=== PATIENT | female | born 1940 | race Hispanic/Latino ===

== ENCOUNTER 2017-11-05 10:58 | Emergency (ER) | payer MEDICARE, OTHER ==
[2017-11-05 11:28] VITALS: O2SAT 98
[2017-11-05] MEDS ORDERED: DiphenhydrAMINE 50 mg/ml Inj IVP STA (11:52)
[2017-11-05] MEDS ORDERED: Promethazine 25 MG in Sodium Chloride 0.9% 50 ML IVPB STA (11:52)
--- NOTE | 2017-11-05 12:01 | ED PDOC ---
HPI: Headache Time Seen by Provider: 11/05/17 11:36 Chief Complaint (Nursing): Headache Chief Complaint (Provider): Headache History Per: Patient, Family (Son) History/Exam Limitations: no limitations Onset/Duration Of Symptoms: Intermittent Episodes Current Symptoms Are (Timing): Still Present Associated Symptoms: denies: Photophobia, Blurred Vision Additional Complaint(s): 77 year old female presented to the ED with her son complaining of intermittent right sided headache with onset of 2 years but has worsened in the past 2 weeks. Patient reports she takes chronic narcotic medications for chronic back pain. She denies visual changes, photophobia, neck stiffness, and fever. PCP: Dr. Thomson Past Medical History Reviewed: Historical Data, Nursing Documentation, Vital Signs Vital Signs: Last Vital Signs Temp 98.0 F 11/05/17 11:22 Pulse 86 11/05/17 11:22 Resp 16 11/05/17 11:22 BP 128/68 11/05/17 11:22 Pulse Ox 98 11/05/17 11:22 - Medical History PMH: Arthritis, Asthma, HTN, Hypercholesterolemia Denies: Chronic Kidney Disease - Surgical History Surgical History: Appendectomy, Back Surgery Other surgeries: Cataract surgery - Family History Family History: States: Unknown Family Hx - Social History Current smoker - smoking cessation education provided: No Alcohol: None Drugs: Denies - Home Medications Home Medications: Ambulatory Orders Medication Instructions Recorded Esomeprazole Magnesium [Nexium 40 mg PO DAILY 03/19/15 24Hr] Fluticasone/Salmeterol 500/50 1 puff INH Q12H 03/19/15 [Advair Diskus 500/50] Levalbuterol Tartrate [Xopenex Hfa] 2 puff IH Q6H PRN 03/19/15 Losartan Potassium 50 mg PO DAILY 03/19/15 Montelukast [Singulair] 10 mg PO HS 03/19/15 Oxycodone HCl/Acetaminophen 1 tab PO DAILY 03/19/15 [Percocet 325 mg-5 mg] amLODIPine [Norvasc] 5 mg PO DAILY 03/19/15 clonazePAM [Klonopin] 1 mg PO TID PRN 03/19/15 Bimatoprost [Lumigan] 1 drop EACHEYE HS 05/10/15 Brimonidine Tartrate/Timolol 1 drop EACHEYE BID 05/10/15 [Combigan 0.2%-0.5% Eye Drops] Donepezil [Aricept] 10 mg PO DAILY 05/10/15 Dorzolamide 2% [Trusopt] 1 drop EACHEYE TID 05/10/15 Multivit,Iron,Min 5/Folic Acid 1 tab PO DAILY 05/10/15 [Strovite Forte Caplet] Olopatadine 0.1% Opht [Patanol 1 drop EACHEYE BID PRN 05/10/15 0.1% Opht Soln] Rosuvastatin Calcium [Crestor] 5 mg PO HS 05/10/15 Trazodone Hydrochloride [Trazodone 150 mg PO HS 05/10/15 HCl] Mirtazapine [Remeron] 45 mg PO HS 05/13/15 Ciprofloxacin [Cipro] 500 mg PO BID #10 tab 05/14/15 Metronidazole [Flagyl] 500 mg PO TID #15 tab 05/14/15 - Allergies Allergies/Adverse Reactions: Allergies Allergy/AdvReac Type Severity Reaction Status Date / Time aspirin Allergy RASH Verified 11/05/17 11:28 Review of Systems ROS Statement: Except As Marked, All Systems Reviewed And Found Negative Constitutional: Negative for: Fever Eyes: Negative for: Vision Change, Other (photophobia) ENT: Negative for: Other (neck stiffness) Neurological: Positive for: Headache (right sided). Negative for: Other Physical Exam - Reviewed Nursing Documentation Reviewed: Yes Vital Signs Reviewed: Yes - Physical Exam Appears: Positive for: Non-toxic, No Acute Distress Head Exam: Positive for: ATRAUMATIC, NORMOCEPHALIC Skin: Positive for: Normal Color, Warm, Dry Neck: Positive for: Normal, Painless ROM Cardiovascular/Chest: Positive for: Regular Rate, Rhythm. Negative for: Murmur Respiratory: Positive for: Normal Breath Sounds. Negative for: Wheezing, Respiratory Distress Extremity: Positive for: Normal ROM Neurologic/Psych: Positive for: Alert, Oriented. 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 - ECG O2 Sat by Pulse Oximetry: 98 (RA) Pulse Ox Interpretation: Normal Medical Decision Making Medical Decision Making: Initial Impression: acute on chronic headache Initial Plan: CT Head Diphenhydramine 25mg IV Promethazine 25mg Sodium chloride 0.9% 50mL IV Accession No. : [id number] Patient Name / ID : DAYAN Pablo / [id number] Exam Date : 11/05/2017 12:31:00 ( Approved ) Study Comment : Sex / Age : F / [id number] Creator : Jose Luis Schneider MD Dictator : Jose Luis Schneider MD Promotion Officer : Yardage Control Clerk : Jose Luis Schneider MD Approver2 : Report Date : 11/05/2017 12:50:35 My Comment : PROCEDURE: CT HEAD WITHOUT CONTRAST. HISTORY: KASPER COMPARISON: CT head dated 02/02/2009. TECHNIQUE: Axial computed tomography images were obtained through the head/brain without intravenous contrast. Radiation dose: Total exam DLP = 812.4 mGy-cm. This CT exam was performed using one or more of the following dose reduction techniques: Automated exposure control, adjustment of the mA and/or kV according to patient size, and/or use of iterative reconstruction technique. FINDINGS: HEMORRHAGE: No intracranial hemorrhage. BRAIN: No mass effect or edema. Mild atrophy. Mild chronic microvascular ischemic changes. Bilateral basal ganglia lacunar infarctions versus prominent perivascular spaces. VENTRICLES: Mildly prominent. Patent cavum septum pellucidum. No hydrocephalus. CALVARIUM: Unremarkable. PARANASAL SINUSES: Bilateral ethmoid air cell and left sphenoid sinus mucosal thickening. MASTOID AIR CELLS: Unremarkable as visualized. No inflammatory changes. OTHER FINDINGS: None. IMPRESSION: No acute intracranial pathology. Sinus disease as described above. 14:30 Son states patient chronically uses opioids for back pain, was scheduled for spinal stimulator tomorrow but canceled appt. Pt is followed closely by Pain management physician but frequently refuses alternative treatments. Son states patient had CT head in past which was normal. Scribe Attestation: Documented by Ronnie Angulo acting as a scribe for Arely Ritchie MD. Provider Scribe Attestation: All medical record entries made by the Scribe were at my direction and personally dictated by me. I have reviewed the chart and agree that the record accurately reflects my personal performance of the history, physical exam, medical decision making, and the department course for this patient. I have also personally directed, reviewed, and agree with the discharge instructions and disposition. Disposition - Clinical Impression Clinical Impression: Chronic headache - Disposition Referrals: Souleymane Espino MD [Medical Doctor] - Disposition: Routine/Home Disposition Time: 14:39 Condition: STABLE Instructions: Headache, Adult Forms: [facility] (Irish)
[2017-11-05] MEDS ORDERED: DiphenhydrAMINE 50 mg/ml Inj ONE (12:04)
--- NOTE | 2017-11-05 12:52 | CT ---
PROCEDURE: CT HEAD WITHOUT CONTRAST. HISTORY: KASPER COMPARISON: CT head dated 02/02/2009. TECHNIQUE: Axial computed tomography images were obtained through the head/brain without intravenous contrast. Radiation dose: Total exam DLP = 812.4 mGy-cm. This CT exam was performed using one or more of the following dose reduction techniques: Automated exposure control, adjustment of the mA and/or kV according to patient size, and/or use of iterative reconstruction technique. FINDINGS: HEMORRHAGE: No intracranial hemorrhage. BRAIN: No mass effect or edema. Mild atrophy. Mild chronic microvascular ischemic changes. Bilateral basal ganglia lacunar infarctions versus prominent perivascular spaces. VENTRICLES: Mildly prominent. Patent cavum septum pellucidum. No hydrocephalus. CALVARIUM: Unremarkable. PARANASAL SINUSES: Bilateral ethmoid air cell and left sphenoid sinus mucosal thickening. MASTOID AIR CELLS: Unremarkable as visualized. No inflammatory changes. OTHER FINDINGS: None. IMPRESSION: No acute intracranial pathology. Sinus disease as described above.
[2017-11-05 15:24] VITALS: BP 120/76; PULSE 78; RESP 19; TEMP 97.6
== END 2017-11-05 15:25 | disposition home or self-care (01) ==
LOC: H.ER 10:58
DX: R51 Headache (principal)
CPT/HCPCS: 70450; 96374; 99284; J1200; J2550

== ENCOUNTER 2018-05-23 12:59 | Emergency (ER) | payer MEDICARE, OTHER ==
--- NOTE | 2018-05-23 13:45 | ED PDOC ---
HPI: General Adult Time Seen by Provider: 05/23/18 13:18 Chief Complaint (Nursing): Flu-like Symptoms Chief Complaint (Provider): "Not feeling well" History Per: Patient History/Exam Limitations: no limitations Additional Complaint(s): Pt reports feeling sick X 2 days, abdominal pain, chills, vomiting yesterday. Denies fever, KASPER, cough, diarrhea. Past Medical History Reviewed: Nursing Documentation, Vital Signs Vital Signs: Last Vital Signs Temp 99 F 05/23/18 13:06 Pulse 86 05/23/18 13:06 Resp 20 05/23/18 13:06 BP 131/77 05/23/18 13:06 Pulse Ox 97 05/23/18 13:06 - Medical History PMH: Arthritis, Asthma, Depression, HTN, Hypercholesterolemia - Surgical History Surgical History: Appendectomy, Back Surgery - Family History Family History: States: Unknown Family Hx - Social History Current smoker - smoking cessation education provided: No Alcohol: None - Home Medications Home Medications: Ambulatory Orders Medication Instructions Recorded Esomeprazole Magnesium [Nexium 40 mg PO DAILY 03/19/15 24Hr] Fluticasone/Salmeterol 500/50 1 puff INH Q12H 03/19/15 [Advair Diskus 500/50] Oxycodone HCl/Acetaminophen 1 tab PO PRN PRN 03/19/15 [Percocet 325 mg-5 mg] amLODIPine [Norvasc] 5 mg PO DAILY 03/19/15 Rosuvastatin Calcium [Crestor] 5 mg PO HS 05/10/15 Trazodone Hydrochloride [Trazodone 150 mg PO HS 05/10/15 HCl] Col-Rite 03/27/18 Docusate [Colace] 100 mg PO Q8 PRN #20 cap 03/27/18 Effexor 03/27/18 Lactulose 03/27/18 Metamucil 03/27/18 Mirtazapine 45 mg PO HS 03/27/18 Sucralfate [Carafate] 1 gm PO 03/27/18 Dicyclomine [Bentyl] 20 mg PO QID PRN #20 tab 05/23/18 Famotidine [Pepcid] 40 mg PO DAILY PRN #30 tab 05/23/18 Saccharomyces Boulardi [Florastor] 500 mg PO BID #28 cap 05/23/18 - Allergies Allergies/Adverse Reactions: Allergies Allergy/AdvReac Type Severity Reaction Status Date / Time aspirin Allergy RASH Verified 11/05/17 11:28 Review of Systems Constitutional: Positive for: Chills. Negative for: Fever Eyes: Negative for: Vision Change Cardiovascular: Negative for: Chest Pain, Palpitations Respiratory: Negative for: Cough, Shortness of Breath Gastrointestinal: Positive for: Nausea, Vomiting, Abdominal Pain. Negative for: Diarrhea Genitourinary Female: Negative for: Dysuria, Hematuria Musculoskeletal: Positive for: Back Pain (Chronic) Skin: Negative for: Rash, Lesions Neurological: Negative for: Altered Mental Status, Headache, Dizziness Physical Exam - Reviewed Nursing Documentation Reviewed: Yes Vital Signs Reviewed: Yes - Physical Exam Appears: Positive for: Well, No Acute Distress Head Exam: Positive for: ATRAUMATIC, NORMAL INSPECTION Skin: Positive for: Normal Color, Warm, Dry Eye Exam: Positive for: Normal appearance, EOMI, PERRL Cardiovascular/Chest: Positive for: Regular Rate, Rhythm Respiratory: Positive for: Normal Breath Sounds Gastrointestinal/Abdominal: Positive for: Bowel Sounds, Soft, Tenderness (Generalized). Negative for: Distended, Guarding, Rebound Extremity: Positive for: Normal ROM Neurologic/Psych: Positive for: Alert, category analyst II-XII, Oriented - Laboratory Results Result Diagrams: 05/23/18 13:57 05/23/18 13:57 - ECG O2 Sat by Pulse Oximetry: 97 Medical Decision Making Medical Decision Makin yo female with chills, vomiting and abdominal pain. - labs - EKG - CXR - CT abd/pelvis - IVF - Zofran - Morphine Disposition - Clinical Impression Clinical Impression: Abdominal pain - Disposition Referrals: Bridger Posadas MD [Family Provider] - 05/24/18 Disposition: Transfer of Care Disposition Time: 15:00 Condition: STABLE Prescriptions: Dicyclomine [Bentyl] 20 mg PO QID PRN #20 tab PRN Reason: abdominal pain Famotidine [Pepcid] 40 mg PO DAILY PRN #30 tab PRN Reason: reflux Saccharomyces Boulardi [Florastor] 500 mg PO BID #28 cap Instructions: Acute Abdomen (Belly Pain), Adult (DC) Print Language: CYPRIOT Patient Signed Over To: Felicita Jones
[2018-05-23] MEDS ORDERED: Sodium Chloride 0.9% 1,000 ML IV STA (13:48)
[2018-05-23] MEDS ORDERED: Morphine 4 MG/ML VIAL ONE (14:02)
[2018-05-23 14:04] LABS: BASO # 0.1 K/uL (0.0-0.2); BASO % 0.5 % (0.0-2.0); EOS # 0.2 K/uL (0.0-0.7); EOS % 2.2 % (0.0-4.0); HEMOGLOBIN 13.2 g/dL (12.0-16.0); LYMPH # 3.1 K/uL (1.0-4.3); MEAN CELL VOLUME 95.4 fl (81.0-99.0); MEAN CORPUSCULAR HEMOGLOBIN 31.1 pg (27.0-31.0); MEAN CORPUSCULAR HGB CONC 32.6 g/dL (33.0-37.0); MONO # 0.9 K/uL (0.0-0.8); MONO % 8.7 % (0.0-10.0); NEUT # 5.8 K/uL (1.8-7.0); NEUT % 57.6 % (50.0-75.0); NRBC % 0.4 % (0.0-0.0); RBC 4.26 Mil/uL (3.80-5.20); RED CELL DISTRIBUTION WIDTH 15.1 % (11.5-14.5)
[2018-05-23 14:12] LABS: INR 1.2; PROTHROMBIN TIME 13.3 Seconds (9.8-13.1)
[2018-05-23 14:15] LABS: PARTIAL THROMBOPLASTIN TIME 28.1 Seconds (25.6-37.1)
[2018-05-23 14:25] LABS: SQUAMOUS EPITHIAL < 1 /hpf (0-5); URINE BILIRUBIN NEGATIVE (NEGATIVE); URINE BLOOD NEGATIVE (NEGATIVE); URINE CLARITY CLEAR (Clear); URINE COLOR YELLOW (YELLOW); URINE GLUCOSE (UA) NEG (NEGATIVE); URINE LEUKOCYTE ESTERASE NEG Leu/uL (Negative); URINE PROTEIN NEGATIVE (NEGATIVE); URINE UROBILINOGEN 0.2-1.0 mg/dL (0.2-1.0)
[2018-05-23 14:48] LABS: ALB/GLOB RATIO 1.4 (1.0-2.1); ALBUMIN 4.4 g/dL (3.5-5.0); ALT/SGPT 25 U/L (9-52); AST/SGOT 38 U/L (14-36); BLOOD UREA NITROGEN 12 mg/dl (7-17); CALCIUM 9.6 mg/dL (8.4-10.2); GFR NON-AFRICAN AMERICAN > 60
--- NOTE | 2018-05-23 14:52 | RAD ---
Date of service: 05/23/2018 HISTORY: Abd pain COMPARISON: No prior. TECHNIQUE: Chest PA and lateral FINDINGS: LUNGS: Suspect minimal bibasilar atelectasis.. Persistent slight elevation right hemidiaphragm possibly due to eventration. PLEURA: No significant pleural effusion identified. No pneumothorax apparent. CARDIOVASCULAR: No significant aortic atherosclerotic calcification present. Normal cardiac size. No pulmonary vascular congestion. OSSEOUS STRUCTURES: Minor multilevel degenerative spondylosis in situ pain stimulator electrodes within the posterior spinal canal in the mid to lower thoracic region unchanged from prior study in. Degenerative osteoarthritis both shoulder girdles. VISUALIZED UPPER ABDOMEN: Normal. OTHER FINDINGS: None. IMPRESSION: Suspect minimal bibasilar atelectasis.. Persistent slight elevation right hemidiaphragm possibly due to eventration.
[2018-05-23] MEDS ORDERED: Iohexol 300 100 ML IJ ONE (15:10)
[2018-05-23] MEDS ORDERED: Sodium Chloride 0.9% 50 ML IV ONE (15:10)
--- NOTE | 2018-05-23 15:41 | ED PDOC ---
- Laboratory Results Result Diagrams: 05/23/18 13:57 05/23/18 13:57 - ECG O2 Sat by Pulse Oximetry: 97 (RA) Pulse Ox Interpretation: Normal Medical Decision Making Medical Decision Makin Patient signed out to me by Dr. Ritchie pending labs, CT Abdomen/Pelvis Labs reviewed, no clinically significant abnormalities noted. 1619 CT RESULTS FINDINGS: LOWER THORAX: Unremarkable. Heart size borderline/mildly enlarged. No significant pericardial effusion. There are patchy alveolar-type infiltrates right lung base. In addition, there are some minor scarring changes seen in the right middle lobe. The with LIVER: Liver exhibits normal size. Mild fatty hepatic infiltration. No obvious hepatic mass collection or calcification. Portal and splenic veins are opacified. GALLBLADDER AND BILE DUCTS: Unremarkable. PANCREAS: Pancreas appears slightly atrophic and fatty replaced.. SPLEEN: Unremarkable. No splenomegaly. ADRENALS: No adrenal lesions. KIDNEYS AND URETERS: Unremarkable. No stone or hydronephrosis. BLADDER: The bladder is somewhat thick-walled appearance. Correlation with urinalysis re commended. She 6 REPRODUCTIVE: There appear to be some minimal vascular calcifications about the periphery of the uterus. APPENDIX: The appendix is not seen with complete certainty however no BOWEL: Evaluation of the bowel is somewhat limited due to the lack of oral contrast material. The stomach is relatively collapsed with thick-walled appearance however there may be questionable edema involving the wall of the body of the stomach. Rule out gastritis. Visualized loops of small bowel exhibit normal contour and caliber. No evidence of acute mechanical small bowel obstruction. Moderate amount of stool is seen throughout the cecum at ascending as well as transverse colon consistent with fecal retention/constipation. There are scattered colonic diverticula seen along descending and sigmoid colon with a short segment of the proximal sigmoid colon exhibiting slight thick-walled appea rich. Possibility of a mild early acute diverticulitis must be considered. Clinical correlation recommended... PERITONEUM: Unremarkable. No fluid collection. No free air. Small fat containing umbilical hernia. LYMPH NODES: Unremarkable. No enlarged lymph nodes. VASCULATURE: Unremarkable. No aortic aneurysm. No aortic atherosclerotic calcification or mural plaque present. BONES: Mild multilevel degenerative spondylosis of the lower thoracic and lumbar spine. Postoperative bony fusion changes of the L4 and L5 vertebral body segments with bilateral posterior bony fusion masses. In situ pain stimulator within the dorsal aspect of the lower thoracic and upper lumbar spine with battery pack in the right parasagittal posterior subcutaneous tissues. OTHER FINDINGS: None. IMPRESSION: Diverticulosis with what could represent mild early acute diverticulitis involving a short segment of proximal sigmoid colon. Questionable gastric wall edema. Mild fatty hepatic infiltration. See above discussion for additional findings and details. [address] scan findings. Patient states she continues to have abdominal pain; repeat physical exam demonstrates distractable and unlocalizable tenderness. Will trial GI cocktail for pain relief. 1818 On reassessment, patient reports improvement in pain. Repeat physical exam shows soft, non-tender abdomen. Patient stable for dischar ge home, instructed to follow up with PMD in 2-3 days. Scribe Attestation: Documented by Corina Cisse acting as a scribe for Felicita Jones MD Provider Attestation: All medical record entries made by the Scribe were at my direction and persona lly dictated by me. I have reviewed the chart and agree that the record accurately reflects my personal performance of the history, physical exam, medical decision making, and the department course for this patient. I have also personally directed, reviewed, and agree with the discharge instructions and disposition. Disposition - Clinical Impression Clinical Impression: Abdominal pain - POA Present On Arrival: None - Disposition Referrals: Bridger Posadas MD [Family Provider] - 05/24/18 Disposition: Routine/Home Disposition Time: 18:20 Condition: IMPROVED Prescriptions: Dicyclomine [Bentyl] 20 mg PO QID PRN #20 tab PRN Reason: abdominal pain Famotidine [Pepcid] 40 mg PO DAILY PRN #30 tab PRN Reason: reflux Saccharomyces Boulardi [Florastor] 500 mg PO BID #28 cap Instructions: Acute Abdomen (Belly Pain), Adult (DC) Print Language: BELARUSIAN
[2018-05-23 16:22] VITALS: RESP 18
--- NOTE | 2018-05-23 16:23 | CT ---
Date of service: 05/23/2018 PROCEDURE: CT Abdomen and Pelvis. HISTORY: Abdominal pain COMPARISON: Comparison made with CT scan and pelvis 05/10/2015 TECHNIQUE: Contiguous axial images of the abdomen and pelvis. Oral contrast was administered. No IV contrast given. Coronal and Sagittal reformats generated. Radiation dose: Total exam DLP = 369.98 mGy-cm. This CT exam was performed using one or more of the following dose reduction techniques: Automated exposure control, adjustment of the mA and/or kV according to patient size, and/or use of iterative reconstruction technique. FINDINGS: LOWER THORAX: Unremarkable. Heart size borderline/mildly enlarged. No significant pericardial effusion. There are patchy alveolar-type infiltrates right lung base. In addition, there are some minor scarring changes seen in the right middle lobe. The with LIVER: Liver exhibits normal size. Mild fatty hepatic infiltration. No obvious hepatic mass collection or calcification. Portal and splenic veins are opacified. GALLBLADDER AND BILE DUCTS: Unremarkable. PANCREAS: Pancreas appears slightly atrophic and fatty replaced.. SPLEEN: Unremarkable. No splenomegaly. ADRENALS: No adrenal lesions. KIDNEYS AND URETERS: Unremarkable. No stone or hydronephrosis. BLADDER: The bladder is somewhat thick-walled appearance. Correlation with urinalysis recommended. She 6 REPRODUCTIVE: There appear to be some minimal vascular calcifications about the periphery of the uterus. APPENDIX: The appendix is not seen with complete certainty however no BOWEL: Evaluation of the bowel is somewhat limited due to the lack of oral contrast material. The stomach is relatively collapsed with thick-walled appearance however there may be questionable edema involving the wall of the body of the stomach. Rule out gastritis. Visualized loops of small bowel exhibit normal contour and caliber. No evidence of acute mechanical small bowel obstruction. Moderate amount of stool is seen throughout the cecum at ascending as well as transverse colon consistent with fecal retention/constipation. There are scattered colonic diverticula seen along descending and sigmoid colon with a short segment of the proximal sigmoid colon exhibiting slight thick-walled appearance. Possibility of a mild early acute diverticulitis must be considered. Clinical correlation recommended... PERITONEUM: Unremarkable. No fluid collection. No free air. Small fat containing umbilical hernia. LYMPH NODES: Unremarkable. No enlarged lymph nodes. VASCULATURE: Unremarkable. No aortic aneurysm. No aortic atherosclerotic calcification or mural plaque present. BONES: Mild multilevel degenerative spondylosis of the lower thoracic and lumbar spine. Postoperative bony fusion changes of the L4 and L5 vertebral body segments with bilateral posterior bony fusion masses. In situ pain stimulator within the dorsal aspect of the lower thoracic and upper lumbar spine with battery pack in the right parasagittal posterior subcutaneous tissues. OTHER FINDINGS: None. IMPRESSION: Diverticulosis with what could represent mild early acute diverticulitis involving a short segment of proximal sigmoid colon. Questionable gastric wall edema. Mild fatty hepatic infiltration. See above discussion for additional findings and details.
[2018-05-23] MEDS ORDERED: Alum-Mag Hydrox-Simethicone Susp (30 mL) PO STA (17:01)
[2018-05-23] MEDS ORDERED: Alum-Mag Hydrox-Simethicone Susp (30 mL) ONE (17:15)
[2018-05-23 18:32] VITALS: BP 147/83; PULSE 76; TEMP 98.5
[2018-05-27 12:44] VITALS: O2SAT 97
== END 2018-05-23 18:29 | disposition home or self-care (01) ==
LOC: H.ER 12:59 → SUPCPDRO 12:59 → H.ER 18:29
DX: R10.9 Unspecified abdominal pain (principal)
CPT/HCPCS: 71046; 74177; 80053; 81003; 85025; 85610; 85730; 87804; 96374; 99284; J2270; J2405; J7030; Q9967

== ENCOUNTER 2018-06-28 07:15 | Inpatient (IN) | payer MEDICARE, OTHER ==
[2018-06-28 07:26] VITALS: BMI 23.4
[2018-06-28] MEDS ORDERED: Sodium Chloride 0.9% 1,000 ML IV STA (07:52)
[2018-06-28] MEDS ORDERED: Nitroglycerin 2% 15 INCH/30 GM TUBE TOP STA (07:53)
--- NOTE | 2018-06-28 07:56 | ED PDOC ---
HPI: Chest Pain Time Seen by Provider: 06/28/18 07:39 Chief Complaint (Nursing): Chest Pain History Per: Patient Onset/Duration Of Symptoms: Days (1) Current Symptoms Are (Timing): Still Present Quality: Other Associated Symptoms: denies: Dyspnea Modifying Factors: None Exacerbating Factors: None Additional Complaint(s): Chest pain, non-radiating since this AM. Has also been coughing, non-productive x 5 days, dx'ed with pneumonia by PMD and is on Doxycycline x 5 days. Denies fever. denies SOB. Past Medical History Vital Signs: Last Vital Signs Temp 98.3 F 06/28/18 07:26 Pulse 80 06/28/18 07:26 Resp 17 06/28/18 07:26 BP 161/103 H 06/28/18 07:26 Pulse Ox 97 06/28/18 07:26 - Medical History PMH: Anxiety, Arthritis, Asthma, Back Problems, Depression, HTN, Hypercholesterolemia - Surgical History Surgical History: Appendectomy, Back Surgery - Family History Family History: States: Unknown Family Hx - Home Medications Home Medications: Ambulatory Orders Medication Instructions Recorded Esomeprazole Magnesium [Nexium 40 mg PO DAILY 03/19/15 24Hr] Fluticasone/Salmeterol 500/50 1 puff INH Q12H 03/19/15 [Advair Diskus 500/50] Oxycodone HCl/Acetaminophen 1 tab PO PRN PRN 03/19/15 [Percocet 325 mg-5 mg] amLODIPine [Norvasc] 5 mg PO DAILY 03/19/15 Rosuvastatin Calcium [Crestor] 5 mg PO HS 05/10/15 Trazodone Hydrochloride [Trazodone 150 mg PO HS 05/10/15 HCl] Col-Rite 03/27/18 Docusate [Colace] 100 mg PO Q8 PRN #20 cap 03/27/18 Effexor 03/27/18 Lactulose 03/27/18 Metamucil 03/27/18 Mirtazapine 45 mg PO HS 03/27/18 Sucralfate [Carafate] 1 gm PO 03/27/18 Dicyclomine [Bentyl] 20 mg PO QID PRN #20 tab 05/23/18 Famotidine [Pepcid] 40 mg PO DAILY PRN #30 tab 05/23/18 Saccharomyces Boulardi [Florastor] 500 mg PO BID #28 cap 05/23/18 - Allergies Allergies/Adverse Reactions: Allergies Allergy/AdvReac Type Severity Reaction Status Date / Time aspirin Allergy RASH Verified 11/05/17 11:28 Review of Systems ROS Statement: Except As Marked, All Systems Reviewed And Found Negative Constitutional: Negative for: Fever Cardiovascular: Positive for: Chest Pain Respiratory: Positive for: Cough. Negative for: Shortness of Breath Physical Exam - Reviewed Nursing Documentation Reviewed: Yes Vital Signs Reviewed: Yes - Physical Exam Appears: Positive for: Non-toxic, No Acute Distress Head Exam: Positive for: ATRAUMATIC, NORMAL INSPECTION, NORMOCEPHALIC Skin: Positive for: Normal Color, Warm, DRY Eye Exam: Positive for: EOMI, Normal appearance, PERRL ENT: Positive for: Normal ENT Inspection Neck: Positive for: Normal, Painless ROM Cardiovascular/Chest: Positive for: Regular Rate, Rhythm Respiratory: Positive for: Rhonchi. Negative for: Wheezing, Respiratory Distress Gastrointestinal/Abdominal: Positive for: Normal Exam, Soft Back: Positive for: Normal Inspection Extremity: Positive for: Normal ROM Neurologic/Psych: Positive for: Alert, Oriented - Laboratory Results Result Diagrams: 06/28/18 08:10 06/28/18 08:10 - ECG O2 Sat by Pulse Oximetry: 97 Medical Decision Making Medical Decision Making: Unclear if chest pain is of cardiac or respiratory etiology. Will Obtain CXR, Influenza and Troponin EKG NSR rate 80. No acute ST changes Disposition - Clinical Impression Clinical Impression: Chest pain - Patient ED Disposition Is Patient to be Admitted: Yes - Disposition Disposition Time: 09:41 Condition: FAIR Forms: [facility] (Cameroonian) - Pt Status Changed To: Hospital Disposition Of: Observation - POA Present On Arrival: None
[2018-06-28 08:09] LABS: VENOUS BLOOD GAS BASE EXCESS 7.1 mmol/L (0.0-2.0); VENOUS BLOOD GAS PCO2 56 mmHg (40-60); VENOUS BLOOD GAS PO2 18 mm/Hg (30-55); VENOUS BLOOD PH 7.39 (7.32-7.43)
[2018-06-28] MEDS ORDERED: Nitroglycerin 2% Ointment Foilpak UD TOP ONE (08:18)
[2018-06-28 08:34] LABS: BASO # 0.1 K/uL (0.0-0.2); BASO % 0.7 % (0.0-2.0); EOS # 0.2 K/uL (0.0-0.7); HEMOGLOBIN 14.7 g/dL (12.0-16.0); LYMPH # 3.6 K/uL (1.0-4.3); LYMPH % 22.7 % (20.0-40.0); MEAN CELL VOLUME 94.1 fl (81.0-99.0); MEAN CORPUSCULAR HEMOGLOBIN 29.9 pg (27.0-31.0); MEAN CORPUSCULAR HGB CONC 31.8 g/dL (33.0-37.0); MEAN PLATELET VOLUME 7.8 fl (7.2-11.7); MONO # 1.1 K/uL (0.0-0.8); MONO % 7.2 % (0.0-10.0); NEUT # 10.7 K/uL (1.8-7.0); NEUT % 68.4 % (50.0-75.0); RBC 4.93 Mil/uL (3.80-5.20); WHITE BLOOD COUNT 15.7 K/uL (4.8-10.8)
[2018-06-28 08:40] LABS: ALB/GLOB RATIO 1.1 (1.0-2.1); ALBUMIN 4.7 g/dL (3.5-5.0); ALT/SGPT 27 U/L (9-52); AST/SGOT 33 U/L (14-36); BLOOD UREA NITROGEN 24 mg/dl (7-17); GFR NON-AFRICAN AMERICAN > 60
[2018-06-28] MEDS ORDERED: Nitroglycerin 2% Ointment Foilpak UD TOP STA (08:51)
--- NOTE | 2018-06-28 11:36 | RAD ---
Date of service: 06/28/2018 HISTORY: Chest pain COMPARISON: Comparison is made with the previous study dated 05/23/2018 TECHNIQUE: Chest PA and lateral FINDINGS: LUNGS: No evidence of new infiltrate or consolidation in the lungs. PLEURA: No significant pleural effusion identified. No pneumothorax apparent. CARDIOVASCULAR: No aortic atherosclerotic calcification present. Normal cardiac size. No pulmonary vascular congestion. OSSEOUS STRUCTURES: Severe degenerative changes at the shoulder joints noted. VISUALIZED UPPER ABDOMEN: Normal. OTHER FINDINGS: There are stimulator wires overlying the lower thoracic and lumbar spine. IMPRESSION: No evidence of acute pulmonary disease.
--- NOTE | 2018-06-28 13:24 | CP.PCM.HP ---
History of Present Illness - History of Present Illness History of Present Illness: CC Chest pain. 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 Patient with recent Hx PNA, treated by PMD with Doxycycline with 5th day of treatment. Patient was seen in Telemetry floor with Chest pain pressure type, SOB , high BP, orthopnea , diaphoresis and was seen at bedside with Bottle House Pumper digital marketing consultant , SCALEHOUSE ATTENDANT was called, She was treated with NTG S/L with improvement , NTG drip, EKG St depresion V4,V5, Pt also was treated with Lipitor, Plavix, Metropolol, Cozaar Aggravated factor: Coughing Pt denied: Fever, chills, n/v/d, syncope, dizziness, tachycardia, abdominal pain, urinary symptoms, sick contact, recent travel out of [facility]. CXR: No acute pulmonary disease. EKG: St depression V4 V5 Present on Admission - Present on Admission Any Indicators Present on Admission: No Review of Systems - Constitutional Constitutional: Other (negative) - EENT Eyes: Requires Corrective Lenses Ears: Other (negative) Nose/Mouth/Throat: Other (negative) - Cardiovascular Cardiovascular: Chest Pain - Respiratory Respiratory: Cough, Chest Congestion - Gastrointestinal Gastrointestinal: Other (negative) - Genitourinary Genitourinary: Other (negative) - Musculoskeletal Musculoskeletal: Arthralgias - Integumentary Integumentary: Other (negative) - Neurological Neurological: Other (negative) - Psychiatric Psychiatric: Anxiety, Depression - Endocrine Endocrine: Other (negative) - Hematologic/Lymphatic Hematologic: Other (negative) Past Patient History - Infectious Disease Hx of Infectious Diseases: None - Past Medical History & Family History Past Medical History?: Yes Pertinent Family History: Unknown - Past Social History Smoking Status: Never Smoked Alcohol: None Drugs: Denies Home Situation {Lives}: Alone - CARDIAC Hx Cardiac Disorders: Yes Hx Hypercholesterolemia: Yes Hx Hypertension: Yes - PULMONARY Hx Respiratory Disorders: Yes Hx Asthma: Yes - NEUROLOGICAL Hx Neurological Disorder: No - HEENT Hx HEENT Problems: No Other/Comment: Use eyeglasses - RENAL Hx Chronic Kidney Disease: No - ENDOCRINE/METABOLIC Hx Endocrine Disorders: No - HEMATOLOGICAL/ONCOLOGICAL Hx Blood Disorders: No - INTEGUMENTARY Hx Dermatological Problems: No - MUSCULOSKELETAL/RHEUMATOLOGICAL Hx Musculoskeletal Disorders: Yes Hx Arthritis: Yes Hx Back Pain: Yes - GASTROINTESTINAL Hx Gastrointestinal Disorders: Yes Hx Constipation: Yes Hx Gastroesophageal Reflux: Yes - GENITOURINARY/GYNECOLOGICAL Hx Genitourinary Disorders: No - PSYCHIATRIC Hx Psychophysiologic Disorder: Yes Hx Anxiety: Yes Hx Depression: Yes - SURGICAL HISTORY Hx Surgeries: Yes Hx Appendectomy: Yes - ANESTHESIA Hx Anesthesia: Yes Hx Anesthesia Reactions: No Hx Malignant Hyperthermia: No Meds Allergies/Adverse Reactions: Allergies Allergy/AdvReac Type Severity Reaction Status Date / Time aspirin Allergy RASH Verified 11/05/17 11:28 Physical Exam - Constitutional Appears: In Acute Distress - Head Exam Head Exam: NORMAL INSPECTION - Eye Exam Eye Exam: PERRL - ENT Exam ENT Exam: Normal Exam - Neck Exam Neck exam: Positive for: Normal Inspection - Respiratory Exam Respiratory Exam: Rhonchi - Cardiovascular Exam Cardiovascular Exam: Tachycardia - GI/Abdominal Exam GI & Abdominal Exam: Normal Bowel Sounds, Soft - Extremities Exam Extremities exam: Positive for: normal inspection - Back Exam Back exam: NORMAL INSPECTION - Neurological Exam Neurological exam: Alert, Oriented x3 - Psychiatric Exam Psychiatric exam: Anxious, Depressed - Skin Additional comments: cool, clammy , diaphoretic Results - Vital Signs Recent Vital Signs: Last Vital Signs Temp 97.9 F 06/28/18 12:08 Pulse 79 06/28/18 12:08 Resp 18 06/28/18 12:08 BP 145/81 06/28/18 12:08 Pulse Ox 96 06/28/18 12:08 reviewed J.p. - Labs Result Diagrams: 06/28/18 14:00 06/28/18 14:00 Labs: Laboratory Results - last 24 hr 06/28/18 06/28/18 06/28/18 08:00 08:10 08:10 WBC 15.7 H D RBC 4.93 Hgb 14.7 Hct 46.4 MCV 94.1 MCH 29.9 MCHC 31.8 L RDW 15.0 H Plt Count 572 H D MPV 7.8 Neut % (Auto) 68.4 Lymph % (Auto) 22.7 [place] % (Auto) 7.2 Eos % (Auto) 1.0 Baso % (Auto) 0.7 Neut # (Auto) 10.7 H Lymph # (Auto) 3.6 [place] # (Auto) 1.1 H Eos # (Auto) 0.2 Baso # (Auto) 0.1 pO2 18 L VBG pH 7.39 VBG pCO2 56 VBG HCO3 28.5 VBG Total CO2 35.6 H VBG O2 Sat (Calc) 24.8 L VBG Base Excess 7.1 H VBG Potassium 4.8 Sodium 137.0 136 Chloride 101.0 93 L Glucose 110 H Lactate 1.1 FiO2 21.0 Potassium 4.8 Carbon Dioxide 33 H Anion Gap 15 BUN 24 H Creatinine 0.8 Est GFR ( Amer) > 60 Est GFR (Non-Af Amer) > 60 Random Glucose 112 H Calcium 10.0 Total Bilirubin 0.3 AST 33 ALT 27 Alkaline Phosphatase 114 Troponin I < 0.0120 Total Protein 8.8 H Albumin 4.7 Globulin 4.1 H Albumin/Globulin Ratio 1.1 Venous Blood Potassium 4.8 Influenza Typ A,B (EIA) 06/28/18 08:10 WBC RBC Hgb Hct MCV MCH MCHC RDW Plt Count MPV Neut % (Auto) Lymph % (Auto) [place] % (Auto) Eos % (Auto) Baso % (Auto) Neut # (Auto) Lymph # (Auto) [place] # (Auto) Eos # (Auto) Baso # (Auto) pO2 VBG pH VBG pCO2 VBG HCO3 VBG Total CO2 VBG O2 Sat (Calc) VBG Base Excess VBG Potassium Sodium Chloride Glucose Lactate FiO2 Potassium Carbon Dioxide Anion Gap BUN Creatinine Est GFR ( Amer) Est GFR (Non-Af Amer) Random Glucose Calcium Total Bilirubin AST ALT Alkaline Phosphatase Troponin I Total Protein Albumin Globulin Albumin/Globulin Ratio Venous Blood Potassium Influenza Typ A,B (EIA) Negative for flu a/b reviewed J.P. - EKG Data EKG comments: reviewed J.P. - Imaging and Cardiology Chest x-ray Status: Report reviewed by me (J.P.) Assessment & Plan (1) Chest pain Status: Acute Priority: High (2) Angina pectoris Status: Suspected (3) HTN (hypertension) Status: Acute Priority: High (4) Asthma exacerbation Status: Acute Priority: High (5) Hypercholesterolemia Status: Chronic Priority: Medium (6) Anxiety and depression Status: Chronic Priority: Medium - Assessment and Plan (Free Text) Plan: F/U Blood C-S, continue NTG drip, Plavix , Lipitor, Toprol, Norvasc, Duoneb, Prednisone, Ceftriaxone, Zithromax and rest of Tx, Cardiology consult appreciated, f/u Troponins, ECHO - Date & Time Date: 06/28/18 Time: 13:00
--- NOTE | 2018-06-28 13:41 | CARD ---
APPROVED REPORT Date of service: 06/28/2018 EKG Measurement Heart [id number] <Conclusion> Normal sinus rhythm Normal ECG
[2018-06-28] MEDS ORDERED: Nitroglycerin 50mg in D5W 50 MG/250 ML BOTTLE IV ONE (13:46)
--- NOTE | 2018-06-28 13:57 | PCM.RRT ---
<Ivan Pereira - Last Filed: 06/28/18 14:24> FINANCIAL AIDS OFFICER Nurse Assessment - Situation FINANCIAL AIDS OFFICER Responder Arrival Time: 01:34 Location: Telemetry Room Number: 408-2 FINANCIAL AIDS OFFICER Reason for Call: Chest Pain, Hypertension FINANCIAL AIDS OFFICER Called By: RN, Physician - IV IV Inserted during FINANCIAL AIDS OFFICER?: No - Respiratory Oxygen Delivery Method: Nasal Cannula Was the Patient Ventilated with Bag/Mask 100% O2?: No Secretions Suctioned?: No Was the Patient Intubated?: No Was the Patient Placed on a Ventilator?: No - Medication Medications Administered During FINANCIAL AIDS OFFICER: Nitroglycerin Subungual x two, Nitro IV Drip started - Diagnostic Test Ordered EKG: Yes (normal sinus rhythm ) Chest X-Ray: Yes CT Scan: No - Stat Labs Ordered FINANCIAL AIDS OFFICER Stat Labs Ordered: CBC, BMP, PT/PTT, TROPONIN CPR started during FINANCIAL AIDS OFFICER?: No - Vital Signs Vital Signs: 1:38 PM BP: 162/92 [place]: 99 - [place] Coma Scale Coma Scale Eye Opening: Spontaneous Coma Scale Motor: Obeys Commands Movement Coma Scale Verbal: Oriented Coma Scale Total: 15 - Time FINANCIAL AIDS OFFICER Ended Time FINANCIAL AIDS OFFICER Ended: 01:44 - Vital Signs at end of FINANCIAL AIDS OFFICER Vital Signs at end of FINANCIAL AIDS OFFICER: BP: 172/100, HR 97, RR 16 - Recommendations FINANCIAL AIDS OFFICER Level of Care Recommendations: Remain in current setting Notifications: Attending Physician I.Reason for FINANCIAL AIDS OFFICER - A) Acute Change in Patient: (Select all that apply): Staff member or family is worried about patient - Neurological Status (Select all that apply): Alert, Oriented, Verbal, Follows Commands - Respiratory Oxygen Delivery Method: Nasal Cannula @L/min - Constitutional Appears: Well, Non-toxic, No Acute Distress Additional Comments: skin cool, clammy, diaphoretic - Head Head Exam: ATRAUMATIC, NORMOCEPHALIC - Eyes Eye Exam: Normal appearance - Respiratory Exam Respiratory Exam: Clear to Ausculation Bilateral, NORMAL BREATHING PATTERN. absent: Rales, Rhonchi, Wheezes - Cardiovascular Exam Cardiovascular Exam: Tachycardia, +S1, +S2 - Neurological Exam Neurological Exam: Alert, Awake, Oriented x3 - Extremities Exam Extremities Exam: Full ROM, Normal Capillary Refill Plan - Assessment of Findings&Treatment Plan 77 y/o female with PMHx of Anxiety, Asthma, Arthritis, Depression, HTN, Hypercholesterolemia was seen and evaluated for chest pain with diaphoresis. Patient admitted today due to complaints of non-radiating chest pain X 2 days with chest tightness and pressure. Patient complains of associated cough, dx'ed with pneumonia by PMD and is on Doxycycline x 5 days. Rapid response was called for chest pain with diaphoresis when patient being evaluated by physician. The following physicians were at bedside, Dr. Lopez, Dr. Leon and Dr. Rodriguez. Patient was administered Nitroglycerin subungual X 2, and states some relief. Interventions -EKG: V4 and V5 ST depression noted, interpreted by Dr. Lopez and Dr. Leon -CXR, CBC, CMP, Mg, Phos ordered -Troponin x 3 ordered -patient started on Lipitor 80 mg PO DIN, Plavix 75 mg PO DAILY, Losartan 25 mg PO, Metoprolol 25 mg PO, Nitro Drip at 10 mcg/min FINANCIAL AIDS OFFICER Lead: Dr. Leon FINANCIAL AIDS OFFICER Team: Dr. Won Pereira, Dr. Osman Hsu, Dr. Kathy Winn, Dr. Bourne <Jeannine Leon - Last Filed: 06/28/18 16:31> FINANCIAL AIDS OFFICER Nurse Assessment - Vital Signs Vital Signs: Rapid Response Vital Sign Blood Pressure 162/92 Pulse Rate 92 Respiratory Rate 22 Oxygen Saturation 94 - Vital Signs at end of FINANCIAL AIDS OFFICER Vital Signs at end of FINANCIAL AIDS OFFICER: Rapid Response End Vital Sign Blood Pressure 172/100 Pulse Rate 84 Respiratory Rate 20 O2 Sat by Pulse Oximetry 94 Attending/Attestation - Attestation I have personally seen and examined this patient.: Yes I have fully participated in the care of the patient.: Yes I have reviewed all pertinent clinical information, including history, physical exam and plan: Yes
[2018-06-28 14:02] LABS: ABG ALLEN TEST YES; ARTERIAL BLOOD GAS HCO3 28.4 mmol/L (21-28); ARTERIAL BLOOD GAS HEMOGLOBIN 13.7 g/dL (11.7-17.4); ARTERIAL BLOOD GAS O2 CAPACITY 18.8 mL/dL (16-24); ARTERIAL BLOOD GAS O2 CONTENT 18.8 ML/dL (15-23); ARTERIAL BLOOD GAS PCO2 39 mm/Hg (35-45); ARTERIAL BLOOD GAS PH 7.47 (7.35-7.45); ARTERIAL BLOOD GAS PO2 114 mm/Hg (80-100); ARTERIAL BLOOD GAS TCO2 29.6 mmol/L (22-28)
[2018-06-28 14:11] LABS: BASO # 0.1 K/uL (0.0-0.2); BASO % 0.9 % (0.0-2.0); EOS # 0.1 K/uL (0.0-0.7); EOS % 0.8 % (0.0-4.0); HEMOGLOBIN 13.2 g/dL (12.0-16.0); LYMPH # 3.9 K/uL (1.0-4.3); LYMPH % 29.2 % (20.0-40.0); MEAN CELL VOLUME 91.2 fl (81.0-99.0); MEAN CORPUSCULAR HEMOGLOBIN 29.7 pg (27.0-31.0); MEAN CORPUSCULAR HGB CONC 32.5 g/dL (33.0-37.0); MEAN PLATELET VOLUME 7.5 fl (7.2-11.7); MONO # 1.1 K/uL (0.0-0.8); NEUT # 8.2 K/uL (1.8-7.0); NEUT % 61.1 % (50.0-75.0); RBC 4.44 Mil/uL (3.80-5.20); RED CELL DISTRIBUTION WIDTH 14.6 % (11.5-14.5); WHITE BLOOD COUNT 13.5 K/uL (4.8-10.8)
--- NOTE | 2018-06-28 14:18 | RAD ---
Date of service: 06/28/2018 HISTORY: Chest pain COMPARISON: June 28, 2018 Time of the most recent examination: 08:29. FINDINGS: LUNGS: No active pulmonary disease. PLEURA: No significant pleural effusion identified, no pneumothorax apparent. CARDIOVASCULAR: No atherosclerotic calcification present Normal. OSSEOUS STRUCTURES: No significant abnormalities. VISUALIZED UPPER ABDOMEN: Normal. OTHER FINDINGS: Neuro stimulator device identified lower thoracic region. IMPRESSION: No active disease. No significant interval change compared to the prior examination(s).
[2018-06-28 14:55] LABS: ALB/GLOB RATIO 1.2 (1.0-2.1); ALBUMIN 4.1 g/dL (3.5-5.0); ALT/SGPT 40 U/L (9-52); AST/SGOT 25 U/L (14-36); BLOOD UREA NITROGEN 21 mg/dl (7-17); CALCIUM 9.4 mg/dL (8.4-10.2); GFR NON-AFRICAN AMERICAN > 60
[2018-06-28] MEDS: Metoprolol Succinate 25 mg XL Tab PO SCH (15:15)
[2018-06-28] MEDS ORDERED: Albuterol-Ipratrop 3 mg / 0.5 (3 ml) UD INH PRN (16:12)
[2018-06-28] MEDS: Dorzolamide 2% Ophth Soln OU SCH ×2 (18:18→22:00)
[2018-06-28] MEDS: Venlafaxine 150 mg ER Cap PO SCH (18:19)
[2018-06-28] MEDS ORDERED: Patient's Own Med (Brimonidine Tartrate/Timolol [Combigan 0.2%-0.5% Eye Drops] 1 DROP) EACHEYE SCH (21:00)
[2018-06-28] MEDS: Brimonidine 0.2% 50 DROP/5 ML BOTTLE OU SCH (21:30)
[2018-06-28] MEDS: Fluticasone-Salmeterol 250-50mcg Diskus IH SCH (21:30)
--- NOTE | 2018-06-28 23:55 | CP.PCM.CON ---
<Saul Loyd - Last Filed: 06/28/18 23:37> History of Present Illness - History of Present Illness History of Present Illness: Saul Loyd DO PGY1 - Internal Medicine [employer] - Cardiology Note for Dr. Lopez Due to severity of condition patient HPI supplement w/ chart review: 77F w/ a PMH of HTN, COPD/Asthma, HLD, who presented to [facility] ED on 06/28/18 w/ c/o chest pain x2 days worsening hours prior to arrival. As per ED report patient had recently been diagnosed w/ PNA by PMD and was treated outpt w/ doxycycline. Upon evaluation patient was appearing extremely uncomfortable and diaphoretic. She described chest pain to be in the center of her chest w/ a tightness/ squeezing type sensation non radiating. Due to presentation during interview, INTELLIGENCE RESEARCH SPECIALIST was called. During INTELLIGENCE RESEARCH SPECIALIST patient was hypertensive, and EKG showed minor ST depressions in V4/V5. Patient was administered sublingual nitro which alleviated chest pain. She was subsequently started on Lipitor, Palvix, Losartan, Lopressor 25, and Nitro Drip. Troponin ordered which have been negative x3. other findings unremarkable EKG upon admission was reported as NSR. Cardiology consulted for evaluation of chest pain Remainder 12 system ROS unobtainble due to severity of condition PMH: As above PSH: Appendectomy Allergies: ASA FamHx: Unknown SocialHx: Active smoker Review of Systems - Review of Systems Systems not reviewed;Unavailable: Acuity of Condition Past Patient History - Infectious Disease Hx of Infectious Diseases: None - Past Medical History & Family History Past Medical History?: Yes - Past Social History Smoking Status: Never Smoked - CARDIAC Hx Cardiac Disorders: Yes Hx Angina: Yes Hx Atrial Fibrillation: No Hx Cardia Arrhythmia: No Hx Circulatory Problems: No Hx Congestive Heart Failure: No Hx Heart Attack: No Hx Heart Murmur: No Hx Heart Transplant: No Hx Hypercholesterolemia: Yes Hx Hypertension: Yes Hx Hypotension: No Hx Internal Defibrillator: No Hx Mitral Valve Prolapse: No Hx Pacemaker: No Hx Peripheral Edema: No Hx Peripheral Vascular Disease: No - PULMONARY Hx Respiratory Disorders: Yes Hx Asthma: Yes Hx Bronchitis: No Hx Chronic Obstructive Pulmonary Disease (COPD): No Hx Emphysema: No Hx Lung Cancer: No Hx Pneumonia: No Hx Pulmonary Edema: No Hx Pulmonary Embolism: No Hx Respiratory Aspiration: No Hx Respiratory Tract Infection: No Hx Sleep Apnea: No Hx Tuberculosis: No - NEUROLOGICAL Hx Neurological Disorder: No - HEENT Hx HEENT Problems: No Other/Comment: Use eyeglasses - RENAL Hx Chronic Kidney Disease: No - ENDOCRINE/METABOLIC Hx Endocrine Disorders: No - HEMATOLOGICAL/ONCOLOGICAL Hx Blood Disorders: No Hx AIDS: No Hx Human Immunodeficiency Virus (HIV): No - INTEGUMENTARY Hx Dermatological Problems: No - MUSCULOSKELETAL/RHEUMATOLOGICAL Hx Musculoskeletal Disorders: Yes Hx Arthritis: Yes Hx Back Pain: Yes Hx Falls: Yes - GASTROINTESTINAL Hx Gastrointestinal Disorders: Yes Hx Constipation: Yes Hx Gastroesophageal Reflux: Yes - GENITOURINARY/GYNECOLOGICAL Hx Genitourinary Disorders: No - PSYCHIATRIC Hx Psychophysiologic Disorder: Yes Hx Anxiety: Yes Hx Depression: Yes Hx Substance Use: No - SURGICAL HISTORY Hx Surgeries: Yes Hx Appendectomy: Yes Other/Comment: back surgery for displaced disks, as per patient internal monitor for pain control implanted - ANESTHESIA Hx Anesthesia: Yes Hx Anesthesia Reactions: No Hx Malignant Hyperthermia: No Meds Allergies/Adverse Reactions: Allergies Allergy/AdvReac Type Severity Reaction Status Date / Time aspirin Allergy RASH Verified 11/05/17 11:28 - Medications Medications: Current Medications Acetaminophen (Tylenol 325mg Tab) 650 mg PO Q4 PRN PRN Reason: Pain, Mild (1-3) Last Admin: 06/28/18 21:11 Dose: 650 mg Albuterol/Ipratropium (Duoneb 3 Mg/0.5 Mg (3 Ml) Ud) 3 ml INH RQ6 PRN PRN Reason: Shortness of Breath Alprazolam (Xanax) 0.25 mg PO Q8 PRN PRN Reason: Anxiety Stop: 07/05/18 16:44 Last Admin: 06/28/18 18:27 Dose: 0.25 mg Amlodipine Besylate (Norvasc) 5 mg PO DAILY [facility] Last Admin: 06/28/18 18:22 Dose: 5 mg Atorvastatin Calcium (Lipitor) 80 mg PO HS [facility] Brimonidine Tartrate (Alphagan 0.2% Opht) 1 drop OU Q12 [facility] Clopidogrel Bisulfate (Plavix) 75 mg PO DAILY [facility] Last Admin: 06/28/18 15:14 Dose: 75 mg Dorzolamide HCl (Trusopt) 1 drop OU Q8 [facility] Last Admin: 06/28/18 18:18 Dose: 1 drop Doxepin HCl (Sinequan) 50 mg PO HS [facility] Famotidine (Pepcid) 40 mg PO DAILY [facility] Nitroglycerin/Dextrose (Nitroglycerin 50 Mg/250 Ml D5w) 50 mg in 250 mls @ 3 mls/hr IV .Q24H ONE; Protocol Stop: 06/29/18 13:45 Last Admin: 06/28/18 15:18 Dose: 3 mls/hr Ceftriaxone Sodium 1 gm/ (Sodium Chloride) 100 mls @ 100 mls/hr IVPB DAILY [facility]; Protocol Azithromycin 500 mg/ Sodium (Chloride) 250 mls @ 250 mls/hr IVPB DAILY [facility]; Protocol Losartan Potassium (Cozaar) 50 mg PO DAILY [facility] Metoprolol Succinate (Toprol Xl) 25 mg PO DAILY [facility] Last Admin: 06/28/18 15:15 Dose: 25 mg Montelukast Sodium (Singulair) 10 mg PO HS [facility] Prednisone (Prednisone Tab) 20 mg PO DAILY [facility] Fluticasone/Salmeterol (Advair Diskus 250/50) 1 puff IH Q12 [facility] Timolol Maleate (Timoptic 0.5% Oph Soln) 1 drop OU Q12 [facility] Venlafaxine HCl (Effexor Xr) 150 mg PO QPM [facility] Last Admin: 06/28/18 18:19 Dose: 150 mg Physical Exam - Constitutional Appears: In Acute Distress - Head Exam Head Exam: ATRAUMATIC, NORMOCEPHALIC - Eye Exam Eye Exam: EOMI, Normal appearance, PERRL - ENT Exam ENT Exam: Mucous Membranes Moist - Respiratory Exam Respiratory Exam: Rhonchi - Cardiovascular Exam Cardiovascular Exam: Tachycardia, +S1, +S2 - GI/Abdominal Exam GI & Abdominal Exam: Soft. absent: Tenderness - Extremities Exam Extremities exam: Positive for: normal inspection - Neurological Exam Neurological exam: Alert, Oriented x3 - Psychiatric Exam Psychiatric exam: Anxious - Skin Skin Exam: Diaphoretic Results - Vital Signs Recent Vital Signs: Last Vital Signs Temp 98.7 F 06/28/18 16:58 Pulse 76 06/28/18 18:33 Resp 18 06/28/18 18:33 BP 153/72 H 06/28/18 18:22 Pulse Ox 99 06/28/18 16:58 - Labs Result Diagrams: 06/28/18 14:00 06/28/18 14:00 Labs: Laboratory Results - last 24 hr 06/28/18 06/28/18 06/28/18 08:00 08:10 08:10 WBC 15.7 H D RBC 4.93 Hgb 14.7 Hct 46.4 MCV 94.1 MCH 29.9 MCHC 31.8 L RDW 15.0 H Plt Count 572 H D MPV 7.8 Neut % (Auto) 68.4 Lymph % (Auto) 22.7 [place] % (Auto) 7.2 Eos % (Auto) 1.0 Baso % (Auto) 0.7 Neut # (Auto) 10.7 H Lymph # (Auto) 3.6 [place] # (Auto) 1.1 H Eos # (Auto) 0.2 Baso # (Auto) 0.1 pCO2 pO2 18 L HCO3 ABG pH ABG Total CO2 ABG O2 Saturation ABG O2 Content ABG Base Excess ABG Hemoglobin ABG Carboxyhemoglobin POC ABG HHb (Measured) ABG Methemoglobin ABG O2 Capacity [place] Test VBG pH 7.39 VBG pCO2 56 VBG HCO3 28.5 VBG Total CO2 35.6 H VBG O2 Sat (Calc) 24.8 L VBG Base Excess 7.1 H VBG Potassium 4.8 A-a O2 Difference Hgb O2 Saturation Sodium 137.0 136 Chloride 101.0 93 L Glucose 110 H Lactate 1.1 FiO2 21.0 Blood Gas Comments Crit Value Read Back Potassium 4.8 Carbon Dioxide 33 H Anion Gap 15 BUN 24 H Creatinine 0.8 Est GFR ( Amer) > 60 Est GFR (Non-Af Amer) > 60 POC Glucose (mg/dL) Random Glucose 112 H Calcium 10.0 Phosphorus Magnesium Total Bilirubin 0.3 AST 33 ALT 27 Alkaline Phosphatase 114 Troponin I < 0.0120 Total Protein 8.8 H Albumin 4.7 Globulin 4.1 H Albumin/Globulin Ratio 1.1 Venous Blood Potassium 4.8 Influenza Typ A,B (EIA) 06/28/18 06/28/18 06/28/18 08:10 13:45 13:51 WBC RBC Hgb Hct MCV MCH MCHC RDW Plt Count MPV Neut % (Auto) Lymph % (Auto) [place] % (Auto) Eos % (Auto) Baso % (Auto) Neut # (Auto) Lymph # (Auto) [place] # (Auto) Eos # (Auto) Baso # (Auto) pCO2 39 pO2 114 H HCO3 28.4 H ABG pH 7.47 H ABG Total CO2 29.6 H ABG O2 Saturation 100.0 H ABG O2 Content 18.8 ABG Base Excess 4.5 H ABG Hemoglobin 13.7 ABG Carboxyhemoglobin 1.7 H POC ABG HHb (Measured) 0.0 ABG Methemoglobin 1.3 ABG O2 Capacity 18.8 [place] Test Yes VBG pH VBG pCO2 VBG HCO3 VBG Total CO2 VBG O2 Sat (Calc) VBG Base Excess VBG Potassium A-a O2 Difference 58.0 Hgb O2 Saturation 97.0 Sodium Chloride Glucose Lactate FiO2 31.0 Blood Gas Comments 3l,/m nc,rr Crit Value Read Back N Potassium Carbon Dioxide Anion Gap BUN Creatinine Est GFR ( Amer) Est GFR (Non-Af Amer) POC Glucose (mg/dL) 155 H Random Glucose Calcium Phosphorus Magnesium Total Bilirubin AST ALT Alkaline Phosphatase Troponin I Total Protein Albumin Globulin Albumin/Globulin Ratio Venous Blood Potassium Influenza Typ A,B (EIA) Negative for flu a/b 06/28/18 06/28/18 06/28/18 14:00 14:00 20:34 WBC 13.5 H RBC 4.44 Hgb 13.2 Hct 40.5 MCV 91.2 D MCH 29.7 MCHC 32.5 L RDW 14.6 H Plt Count 550 H MPV 7.5 Neut % (Auto) 61.1 Lymph % (Auto) 29.2 [place] % (Auto) 8.0 Eos % (Auto) 0.8 Baso % (Auto) 0.9 Neut # (Auto) 8.2 H Lymph # (Auto) 3.9 [place] # (Auto) 1.1 H Eos # (Auto) 0.1 Baso # (Auto) 0.1 pCO2 pO2 HCO3 ABG pH ABG Total CO2 ABG O2 Saturation ABG O2 Content ABG Base Excess ABG Hemoglobin ABG Carboxyhemoglobin POC ABG HHb (Measured) ABG Methemoglobin ABG O2 Capacity Geovany Test VBG pH VBG pCO2 VBG HCO3 VBG Total CO2 VBG O2 Sat (Calc) VBG Base Excess VBG Potassium A-a O2 Difference Hgb O2 Saturation Sodium 140 Chloride 98 Glucose Lactate FiO2 Blood Gas Comments Crit Value Read Back Potassium 4.5 Carbon Dioxide 30 Anion Gap 17 BUN 21 H Creatinine 0.8 Est GFR ( Amer) > 60 Est GFR (Non-Af Amer) > 60 POC Glucose (mg/dL) Random Glucose 151 H Calcium 9.4 Phosphorus 4.0 Magnesium 2.4 H Total Bilirubin 0.4 AST 25 ALT 40 Alkaline Phosphatase 105 Troponin I < 0.0120 < 0.0120 Total Protein 7.6 Albumin 4.1 Globulin 3.4 Albumin/Globulin Ratio 1.2 Venous Blood Potassium Influenza Typ A,B (EIA) Assessment & Plan (1) Chest pain Status: Acute Priority: High (2) HTN (hypertension) Status: Chronic Priority: High (3) Hypercholesterolemia Status: Chronic Priority: Medium - Assessment and Plan (Free Text) Plan: Chest Pain: Repeat EKG is NSR w/ previously seen V4/V5 depressions resolved Troponin x3 negative Chest pain alleviated w/ nitro Cannot rule out ACS at this time; will warrant further work up given multiple risk factors C/w Lipitor, Palvix, Cozaar 50, Toprol XL 25, and Nitro Drip Further reccs per Dr. Lopez <Kurt Lopez - Last Filed: 06/30/18 00:05> Meds - Medications Medications: Current Medications Acetaminophen (Tylenol 325mg Tab) 650 mg PO Q4 PRN PRN Reason: Pain, Mild (1-3) Last Admin: 06/29/18 08:48 Dose: 650 mg Albuterol/Ipratropium (Duoneb 3 Mg/0.5 Mg (3 Ml) Ud) 3 ml INH RQ6 PRN PRN Reason: Shortness of Breath Alprazolam (Xanax) 0.25 mg PO Q8 PRN PRN Reason: Anxiety Stop: 07/05/18 16:44 Last Admin: 06/28/18 18:27 Dose: 0.25 mg Amlodipine Besylate (Norvasc) 5 mg PO DAILY [facility] Last Admin: 06/29/18 10:43 Dose: 5 mg Atorvastatin Calcium (Lipitor) 80 mg PO HS [facility] Last Admin: 06/29/18 21:43 Dose: 80 mg Brimonidine Tartrate (Alphagan 0.2% Opht) 1 drop OU Q12 [facility] Last Admin: 06/29/18 21:42 Dose: 1 drop Clopidogrel Bisulfate (Plavix) 75 mg PO DAILY [facility] Last Admin: 06/29/18 08:20 Dose: 75 mg Dorzolamide HCl (Trusopt) 1 drop OU Q8 [facility] Last Admin: 06/29/18 17:02 Dose: 1 drop Doxepin HCl (Sinequan) 50 mg PO HS [facility] Last Admin: 06/29/18 21:43 Dose: 50 mg Famotidine (Pepcid) 40 mg PO DAILY [facility] Last Admin: 06/29/18 08:19 Dose: 40 mg Ceftriaxone Sodium 1 gm/ (Sodium Chloride) 100 mls @ 100 mls/hr IVPB DAILY [facility]; Protocol Last Admin: 06/29/18 08:21 Dose: 100 mls/hr Azithromycin 500 mg/ Sodium (Chloride) 250 mls @ 250 mls/hr IVPB DAILY [facility]; Protocol Last Admin: 06/29/18 08:23 Dose: 250 mls/hr Losartan Potassium (Cozaar) 50 mg PO DAILY [facility] Last Admin: 06/29/18 08:27 Dose: 50 mg Metoprolol Succinate (Toprol Xl) 25 mg PO DAILY [facility] Last Admin: 06/29/18 17:02 Dose: 25 mg Montelukast Sodium (Singulair) 10 mg PO HS [facility] Last Admin: 06/29/18 21:43 Dose: 10 mg Prednisone (Prednisone Tab) 20 mg PO DAILY [facility] Last Admin: 06/29/18 08:21 Dose: 20 mg Fluticasone/Salmeterol (Advair Diskus 250/50) 1 puff IH Q12 [facility] Last Admin: 06/29/18 21:42 Dose: 1 puff Timolol Maleate (Timoptic 0.5% [facility]) 1 drop OU Q12 [facility] Last Admin: 06/29/18 21:43 Dose: 1 drop Venlafaxine HCl (Effexor Xr) 150 mg PO QPM [facility] Last Admin: 06/29/18 17:02 Dose: 150 mg Results - Vital Signs Recent Vital Signs: Last Vital Signs Temp 98 F 06/29/18 20:53 Pulse 67 06/29/18 20:53 Resp 16 06/29/18 20:53 BP 126/71 06/29/18 20:53 Pulse Ox 99 06/29/18 20:53 - Labs Result Diagrams: 06/28/18 14:00 06/28/18 14:00 Attending/Attestation - Attestation I have personally seen and examined this patient.: Yes I have fully participated in the care of the patient.: Yes I have reviewed all pertinent clinical information: Yes Notes (Text): 06/30/18 00:04 seen during INTELLIGENCE RESEARCH SPECIALIST for chest pain on rounds in am hx of 2 days of worsening CP ? Psych issues echo pending plan for stress testing cont IV nitro gtt asa, plavix,statins, bb
--- NOTE | 2018-06-29 00:36 | CARD ---
APPROVED REPORT Date of service: 06/28/2018 EKG Measurement Heart [id number] <Conclusion> Normal sinus rhythm Normal ECG
[2018-06-29] MEDS ORDERED: Morphine 4 MG/ML VIAL IVP ONE (00:50)
--- NOTE | 2018-06-29 01:48 | CP.PCM.PCO ---
Addendum Addendum: 06/29/18 00:30 The telegraphic typewriter repairer was called to evaluate this 77 y/o F who was complaining of severe chest pain, headache and feeling anxious. Chest pain was described as pressure- like, aggravated a few hours ago, very severe and non-radiating. Headache is also severe, pressure-like, diffuse, Tylenol was given at 9pm last night with NO improvement. Xanax was given at 6:27pm with minimal improvement. --Pt is on Nitroglycerin drip. Serum troponin negative x3 on 06/28/18. --Vital signs were unremarkable except for BP 152/72. --EKG was ordered. Reviewed by me. NO acute ST/T segments changes. NO changes from previous one. --Due to severity of pain and patient's discomfort, 1x dose of IV Morphine 2mg was ordered. --Will f/u symptoms.
[2018-06-29] MEDS: Brimonidine 0.2% 50 DROP/5 ML BOTTLE OU SCH ×2 (08:18→21:42)
[2018-06-29] MEDS: Fluticasone-Salmeterol 250-50mcg Diskus IH SCH ×2 (08:18→21:42)
[2018-06-29] MEDS: Dorzolamide 2% Ophth Soln OU SCH ×2 (08:22→17:02)
[2018-06-29] MEDS: Azithromycin 500 MG in Sodium Chloride 0.9% 250 ML IVPB SCH (08:23)
--- NOTE | 2018-06-29 11:26 | CP.PCM.CON ---
History of Present Illness - History of Present Illness History of Present Illness: pt is a 77 y/[facility] F[facility] be [facility] for Chest pain, , associated to high BP 161/103 on arrival to ER. pt on evaluation reported previous psychiatric history of depression, anxiety and panic disorder, reported previous psychiatric hospitalizations but unable to provide details , denied previous suicidal attempts, pt reported at current time lives by herself, feeling lonely , at times feels hopeless and helpless, with passive suicidal ideations, wishing she was not alive, continues to experience daily frequent panic attacks with heaviness of chest and butterflies in the stomach, reported poor sleep and poor appetite denied perceptual disturbances, denied homicidal ideation pt currently not under psychiatric care, her psychotropic medications managed by PMD Past Patient History - Infectious Disease Hx of Infectious Diseases: None - Past Medical History & Family History Past Medical History?: Yes - Past Social History Smoking Status: Never Smoked Alcohol: None Drugs: Denies Home Situation {Lives}: Alone - CARDIAC Hx Cardiac Disorders: Yes Hx Hypercholesterolemia: Yes Hx Hypertension: Yes - PULMONARY Hx Respiratory Disorders: Yes Hx Asthma: Yes - NEUROLOGICAL Hx Neurological Disorder: No - HEENT Hx HEENT Problems: No Other/Comment: Use eyeglasses - RENAL Hx Chronic Kidney Disease: No - ENDOCRINE/METABOLIC Hx Endocrine Disorders: No - HEMATOLOGICAL/ONCOLOGICAL Hx Blood Disorders: No - INTEGUMENTARY Hx Dermatological Problems: No - MUSCULOSKELETAL/RHEUMATOLOGICAL Hx Musculoskeletal Disorders: Yes Hx Arthritis: Yes Hx Back Pain: Yes - GASTROINTESTINAL Hx Gastrointestinal Disorders: Yes Hx Constipation: Yes Hx Gastroesophageal Reflux: Yes - GENITOURINARY/GYNECOLOGICAL Hx Genitourinary Disorders: No - PSYCHIATRIC Hx Psychophysiologic Disorder: Yes Hx Anxiety: Yes Hx Depression: Yes - SURGICAL HISTORY Hx Surgeries: Yes Hx Appendectomy: Yes - ANESTHESIA Hx Anesthesia: Yes Hx Anesthesia Reactions: No Hx Malignant Hyperthermia: No Meds Allergies/Adverse Reactions: Allergies Allergy/AdvReac Type Severity Reaction Status Date / Time aspirin Allergy RASH Verified 11/05/17 11:28 - Medications Medications: Current Medications Acetaminophen (Tylenol 325mg Tab) 650 mg PO Q4 PRN PRN Reason: Pain, Mild (1-3) Last Admin: 06/29/18 08:48 Dose: 650 mg Albuterol/Ipratropium (Duoneb 3 Mg/0.5 Mg (3 Ml) Ud) 3 ml INH RQ6 PRN PRN Reason: Shortness of Breath Alprazolam (Xanax) 0.25 mg PO Q8 PRN PRN Reason: Anxiety Stop: 07/05/18 16:44 Last Admin: 06/28/18 18:27 Dose: 0.25 mg Amlodipine Besylate (Norvasc) 5 mg PO DAILY [facility] Last Admin: 06/29/18 10:43 Dose: 5 mg Atorvastatin Calcium (Lipitor) 80 mg PO HS [facility] Last Admin: 06/28/18 22:00 Dose: 80 mg Brimonidine Tartrate (Alphagan 0.2% Opht) 1 drop OU Q12 [facility] Last Admin: 06/29/18 08:18 Dose: 1 drop Clopidogrel Bisulfate (Plavix) 75 mg PO DAILY [facility] Last Admin: 06/29/18 08:20 Dose: 75 mg Dorzolamide HCl (Trusopt) 1 drop OU Q8 [facility] Last Admin: 06/29/18 08:22 Dose: 1 drop Doxepin HCl (Sinequan) 50 mg PO HS [facility] Last Admin: 06/28/18 22:00 Dose: 50 mg Famotidine (Pepcid) 40 mg PO DAILY [facility] Last Admin: 06/29/18 08:19 Dose: 40 mg Nitroglycerin/Dextrose (Nitroglycerin 50 Mg/250 Ml D5w) 50 mg in 250 mls @ 3 mls/hr IV .Q24H [facility]; Protocol Stop: 06/29/18 13:45 Last Admin: 06/28/18 15:18 Dose: 3 mls/hr Ceftriaxone Sodium 1 gm/ (Sodium Chloride) 100 mls @ 100 mls/hr IVPB DAILY [facility]; Protocol Last Admin: 06/29/18 08:21 Dose: 100 mls/hr Azithromycin 500 mg/ Sodium (Chloride) 250 mls @ 250 mls/hr IVPB DAILY [facility]; Protocol Last Admin: 06/29/18 08:23 Dose: 250 mls/hr Losartan Potassium (Cozaar) 50 mg PO DAILY [facility] Last Admin: 06/29/18 08:27 Dose: 50 mg Metoprolol Succinate (Toprol Xl) 25 mg PO DAILY [facility] Last Admin: 06/28/18 15:15 Dose: 25 mg Montelukast Sodium (Singulair) 10 mg PO HS [facility] Last Admin: 06/28/18 22:00 Dose: 10 mg Prednisone (Prednisone Tab) 20 mg PO DAILY [facility] Last Admin: 06/29/18 08:21 Dose: 20 mg Fluticasone/Salmeterol (Advair Diskus 250/50) 1 puff IH Q12 [facility] Last Admin: 06/29/18 08:18 Dose: 1 puff Timolol Maleate (Timoptic 0.5% Ophth Soln) 1 drop OU Q12 [facility] Last Admin: 06/29/18 08:22 Dose: 1 drop Venlafaxine HCl (Effexor Xr) 150 mg PO QPM [facility] Last Admin: 06/28/18 18:19 Dose: 150 mg Physical Exam - Psychiatric Exam Additional comments: pt seen in bed, cooperative, good eye contact, speech soft and slow, mood depressed and anxious, affect appropriate, thought form coherent denied perceptual disturbances, non elicited , alert awake oriented x3 Results - Vital Signs Recent Vital Signs: Last Vital Signs Temp 98.9 F 06/29/18 08:22 Pulse 78 06/29/18 10:43 Resp 18 06/29/18 08:22 BP 101/62 06/29/18 10:43 Pulse Ox 97 06/29/18 08:22 - Labs Result Diagrams: 06/28/18 14:00 06/28/18 14:00 Labs: Laboratory Results - last 24 hr 06/28/18 06/28/18 06/28/18 13:45 13:51 14:00 WBC RBC Hgb Hct MCV MCH MCHC RDW Plt Count MPV Neut % (Auto) Lymph % (Auto) [place] % (Auto) Eos % (Auto) Baso % (Auto) Neut # (Auto) Lymph # (Auto) [place] # (Auto) Eos # (Auto) Baso # (Auto) pCO2 39 pO2 114 H HCO3 28.4 H ABG pH 7.47 H ABG Total CO2 29.6 H ABG O2 Saturation 100.0 H ABG O2 Content 18.8 ABG Base Excess 4.5 H ABG Hemoglobin 13.7 ABG Carboxyhemoglobin 1.7 H POC ABG HHb (Measured) 0.0 ABG Methemoglobin 1.3 ABG O2 Capacity 18.8 [place]any Test Yes A-a O2 Difference 58.0 Hgb O2 Saturation 97.0 FiO2 31.0 Blood Gas Comments 3l,/m nc,rr Crit Value Read Back N Sodium 140 Potassium 4.5 Chloride 98 Carbon Dioxide 30 Anion Gap 17 BUN 21 H Creatinine 0.8 Est GFR ( Amer) > 60 Est GFR (Non-Af Amer) > 60 POC Glucose (mg/dL) 155 H Random Glucose 151 H Calcium 9.4 Phosphorus 4.0 Magnesium 2.4 H Total Bilirubin 0.4 AST 25 ALT 40 Alkaline Phosphatase 105 Troponin I < 0.0120 Total Protein 7.6 Albumin 4.1 Globulin 3.4 Albumin/Globulin Ratio 1.2 06/28/18 06/28/18 14:00 20:34 WBC 13.5 H RBC 4.44 Hgb 13.2 Hct 40.5 MCV 91.2 D MCH 29.7 MCHC 32.5 L RDW 14.6 H Plt Count 550 H MPV 7.5 Neut % (Auto) 61.1 Lymph % (Auto) 29.2 [place] % (Auto) 8.0 Eos % (Auto) 0.8 Baso % (Auto) 0.9 Neut # (Auto) 8.2 H Lymph # (Auto) 3.9 [place] # (Auto) 1.1 H Eos # (Auto) 0.1 Baso # (Auto) 0.1 pCO2 pO2 HCO3 ABG pH ABG Total CO2 ABG O2 Saturation ABG O2 Content ABG Base Excess ABG Hemoglobin ABG Carboxyhemoglobin POC ABG HHb (Measured) ABG Methemoglobin ABG O2 Capacity [place] Test A-a O2 Difference Hgb O2 Saturation FiO2 Blood Gas Comments Crit Value Read Back Sodium Potassium Chloride Carbon Dioxide Anion Gap BUN Creatinine Est GFR ( Amer) Est GFR (Non-Af Amer) POC Glucose (mg/dL) Random Glucose Calcium Phosphorus Magnesium Total Bilirubin AST ALT Alkaline Phosphatase Troponin I < 0.0120 Total Protein Albumin Globulin Albumin/Globulin Ratio Assessment & Plan - Assessment and Plan (Free Text) Assessment: MAJOR DEPRESSION RECURRENT PANIC DISORDER Plan: pt at current mental status presenting with symptoms of depression and passive suicidal ideation pt would benefit from admission to psychiatry for stabilization pt agreed for voluntary admission pt to be transferred to psychiatry upon medical clearance
--- NOTE | 2018-06-29 16:09 | CP.PCM.PN ---
Subjective - Date & Time of Evaluation Date of Evaluation: 06/29/18 Time of Evaluation: 11:40 - Subjective Subjective: F/U Chest pain. generalized body pain and Chest pain, no SOB Objective - Vital Signs/Intake and Output Vital Signs (last 24 hours): Temp Pulse Resp BP Pulse Ox 98 F 65 18 96/60 L 97 06/29/18 11:43 06/29/18 11:43 06/29/18 11:43 06/29/18 11:43 06/29/18 11:43 - Medications Medications: Current Medications Acetaminophen (Tylenol 325mg Tab) 650 mg PO Q4 PRN PRN Reason: Pain, Mild (1-3) Last Admin: 06/29/18 08:48 Dose: 650 mg Albuterol/Ipratropium (Duoneb 3 Mg/0.5 Mg (3 Ml) Ud) 3 ml INH RQ6 PRN PRN Reason: Shortness of Breath Alprazolam (Xanax) 0.25 mg PO Q8 PRN PRN Reason: Anxiety Stop: 07/05/18 16:44 Last Admin: 06/28/18 18:27 Dose: 0.25 mg Amlodipine Besylate (Norvasc) 5 mg PO DAILY [facility] Last Admin: 06/29/18 10:43 Dose: 5 mg Atorvastatin Calcium (Lipitor) 80 mg PO [facility] Last Admin: 06/28/18 22:00 Dose: 80 mg Brimonidine Tartrate (Alphagan 0.2% Opht) 1 drop OU Q12 [facility] Last Admin: 06/29/18 08:18 Dose: 1 drop Clopidogrel Bisulfate (Plavix) 75 mg PO DAILY [facility] Last Admin: 06/29/18 08:20 Dose: 75 mg Dorzolamide HCl (Trusopt) 1 drop OU Q8 [facility] Last Admin: 06/29/18 08:22 Dose: 1 drop Doxepin HCl (Sinequan) 50 mg PO HS [facility] Last Admin: 06/28/18 22:00 Dose: 50 mg Famotidine (Pepcid) 40 mg PO DAILY [facility] Last Admin: 06/29/18 08:19 Dose: 40 mg Ceftriaxone Sodium 1 gm/ (Sodium Chloride) 100 mls @ 100 mls/hr IVPB DAILY [facility]; Protocol Last Admin: 06/29/18 08:21 Dose: 100 mls/hr Azithromycin 500 mg/ Sodium (Chloride) 250 mls @ 250 mls/hr IVPB DAILY [facility]; Protocol Last Admin: 06/29/18 08:23 Dose: 250 mls/hr Losartan Potassium (Cozaar) 50 mg PO DAILY [facility] Last Admin: 06/29/18 08:27 Dose: 50 mg Metoprolol Succinate (Toprol Xl) 25 mg PO DAILY [facility] Last Admin: 06/28/18 15:15 Dose: 25 mg Montelukast Sodium (Singulair) 10 mg PO HS [facility] Last Admin: 06/28/18 22:00 Dose: 10 mg Prednisone (Prednisone Tab) 20 mg PO DAILY [facility] Last Admin: 06/29/18 08:21 Dose: 20 mg Fluticasone/Salmeterol (Advair Diskus 250/50) 1 puff IH Q12 [facility] Last Admin: 06/29/18 08:18 Dose: 1 puff Timolol Maleate (Timoptic 0.5% [facility]) 1 drop OU Q12 [facility] Last Admin: 06/29/18 08:22 Dose: 1 drop Venlafaxine HCl (Effexor Xr) 150 mg PO QPM [facility] Last Admin: 06/28/18 18:19 Dose: 150 mg - Labs Labs: 06/28/18 14:00 06/28/18 14:00 - Constitutional Appears: No Acute Distress - Head Exam Head Exam: NORMAL INSPECTION - Eye Exam Eye Exam: PERRL - ENT Exam ENT Exam: Normal Exam - Neck Exam Neck Exam: Normal Inspection - Respiratory Exam Respiratory Exam: NORMAL BREATHING PATTERN - Cardiovascular Exam Cardiovascular Exam: REGULAR RHYTHM - GI/Abdominal Exam GI & Abdominal Exam: Soft, Normal Bowel Sounds - Extremities Exam Extremities Exam: Normal Inspection - Back Exam Back Exam: NORMAL INSPECTION - Neurological Exam Neurological Exam: Alert, Oriented x3 Additional comments: Follows commands - Psychiatric Exam Psychiatric exam: Anxious, Depressed - Skin Skin Exam: Warm Assessment and Plan (1) Chest pain Status: Acute (2) Angina pectoris Status: Suspected (3) HTN (hypertension) Status: Acute (4) Asthma exacerbation Status: Acute (5) Hypercholesterolemia Status: Chronic (6) Anxiety and depression Status: Chronic - Assessment and Plan (Free Text) Plan: Zithromax, Rocephin , DuoNeb, Prednisone, Doxepin, Xanax, and rest of t reatment, NTG drip was DC, for STT in am
[2018-06-29] MEDS: Venlafaxine 150 mg ER Cap PO SCH (17:02)
[2018-06-29] MEDS: Metoprolol Succinate 25 mg XL Tab PO SCH (17:02)
--- NOTE | 2018-06-29 22:06 | CP.PCM.PN ---
<Saul Loyd - Last Filed: 06/30/18 00:08> Subjective - Date & Time of Evaluation Date of Evaluation: 06/29/18 Time of Evaluation: 22:01 - Subjective Subjective: Saul Loyd DO PGY1 - Internal Medicine [employer] - Cardiology Note for Dr. Lopez Patient was seen and examined at bedside this evening; comfortable in bed Still complaining of chest pain and shortness of breath, however however she reports about these symptoms are improved. Patient will be made NPO overnight for a stress test tomorrow. Objective - Vital Signs/Intake and Output Vital Signs (last 24 hours): Temp Pulse Resp BP Pulse Ox 98 F 67 16 126/71 99 06/29/18 20:53 06/29/18 20:53 06/29/18 20:53 06/29/18 20:53 06/29/18 20:53 - Medications Medications: Current Medications Acetaminophen (Tylenol 325mg Tab) 650 mg PO Q4 PRN PRN Reason: Pain, Mild (1-3) Last Admin: 06/29/18 08:48 Dose: 650 mg Albuterol/Ipratropium (Duoneb 3 Mg/0.5 Mg (3 Ml) Ud) 3 ml INH RQ6 PRN PRN Reason: Shortness of Breath Alprazolam (Xanax) 0.25 mg PO Q8 PRN PRN Reason: Anxiety Stop: 07/05/18 16:44 Last Admin: 06/28/18 18:27 Dose: 0.25 mg Amlodipine Besylate (Norvasc) 5 mg PO DAILY [facility] Last Admin: 06/29/18 10:43 Dose: 5 mg Atorvastatin Calcium (Lipitor) 80 mg PO HS [facility] Last Admin: 06/29/18 21:43 Dose: 80 mg Brimonidine Tartrate (Alphagan 0.2% Opht) 1 drop OU Q12 [facility] Last Admin: 06/29/18 21:42 Dose: 1 drop Clopidogrel Bisulfate (Plavix) 75 mg PO DAILY [facility] Last Admin: 06/29/18 08:20 Dose: 75 mg Dorzolamide HCl (Trusopt) 1 drop OU Q8 [facility] Last Admin: 06/29/18 17:02 Dose: 1 drop Doxepin HCl (Sinequan) 50 mg PO HS [facility] Last Admin: 06/29/18 21:43 Dose: 50 mg Famotidine (Pepcid) 40 mg PO DAILY [facility] Last Admin: 06/29/18 08:19 Dose: 40 mg Ceftriaxone Sodium 1 gm/ (Sodium Chloride) 100 mls @ 100 mls/hr IVPB DAILY [facility]; Protocol Last Admin: 06/29/18 08:21 Dose: 100 mls/hr Azithromycin 500 mg/ Sodium (Chloride) 250 mls @ 250 mls/hr IVPB DAILY [facility]; Protocol Last Admin: 06/29/18 08:23 Dose: 250 mls/hr Losartan Potassium (Cozaar) 50 mg PO DAILY [facility] Last Admin: 06/29/18 08:27 Dose: 50 mg Metoprolol Succinate (Toprol Xl) 25 mg PO DAILY [facility] Last Admin: 06/29/18 17:02 Dose: 25 mg Montelukast Sodium (Singulair) 10 mg PO HS [facility] Last Admin: 06/29/18 21:43 Dose: 10 mg Prednisone (Prednisone Tab) 20 mg PO DAILY [facility] Last Admin: 06/29/18 08:21 Dose: 20 mg Fluticasone/Salmeterol (Advair Diskus 250/50) 1 puff IH Q12 [facility] Last Admin: 06/29/18 21:42 Dose: 1 puff Timolol Maleate (Timoptic 0.5% [facility]) 1 drop OU Q12 [facility] Last Admin: 06/29/18 21:43 Dose: 1 drop Venlafaxine HCl (Effexor Xr) 150 mg PO QPM [facility] Last Admin: 06/29/18 17:02 Dose: 150 mg - Labs Labs: 06/28/18 14:00 06/28/18 14:00 - Constitutional Appears: Well, Non-toxic, No Acute Distress - Head Exam Head Exam: ATRAUMATIC, NORMOCEPHALIC - Eye Exam Eye Exam: EOMI, Normal appearance, PERRL - Respiratory Exam Respiratory Exam: Clear to Ausculation Bilateral, NORMAL BREATHING PATTERN - Cardiovascular Exam Cardiovascular Exam: REGULAR RHYTHM, RRR, +S1, +S2. absent: Murmur - GI/Abdominal Exam GI & Abdominal Exam: Soft. absent: Tenderness - Extremities Exam Extremities Exam: Normal Capillary Refill. absent: Pedal Edema - Neurological Exam Neurological Exam: Alert, Awake - Psychiatric Exam Psychiatric exam: Normal Affect, Normal Mood - Skin Skin Exam: Dry, Intact, Normal Color, Warm Assessment and Plan (1) Chest pain Status: Acute (2) HTN (hypertension) Status: Acute (3) Hypercholesterolemia Status: Chronic - Assessment and Plan (Free Text) Plan: Chest Pain - patient is still complaining of chest pain however reports it is much improved compared to yesterday. C/w Lipitor, Palvix, Cozaar 50, Toprol XL 25, and Nitro Drip NPO past MN except meds for NST tomorrow 06/[address] Lopez <Kurt Lopez - Last Filed: 07/02/18 14:44> Objective - Vital Signs/Intake and Output Vital Signs (last 24 hours): Temp Pulse Resp BP Pulse Ox 97.9 F 73 20 112/81 98 07/02/18 13:00 07/02/18 13:00 07/02/18 13:00 07/02/18 13:00 07/02/18 13:00 - Medications Medications: Current Medications Acetaminophen (Tylenol 325mg Tab) 650 mg PO Q4 PRN PRN Reason: Pain, Mild (1-3) Last Admin: 07/02/18 08:36 Dose: 650 mg Albuterol/Ipratropium (Duoneb 3 Mg/0.5 Mg (3 Ml) Ud) 3 ml INH RQ6 PRN PRN Reason: Shortness of Breath Alprazolam (Xanax) 0.25 mg PO Q8 PRN PRN Reason: Anxiety Stop: 07/05/18 16:44 Last Admin: 06/30/18 23:10 Dose: 0.25 mg Atorvastatin Calcium (Lipitor) 80 mg PO [facility] Last Admin: 07/01/18 23:00 Dose: 80 mg Brimonidine Tartrate (Alphagan 0.2% Opht) 1 drop OU Q12 [facility] Last Admin: 07/02/18 08:37 Dose: 1 drop Clopidogrel Bisulfate (Plavix) 75 mg PO DAILY [facility] Last Admin: 07/02/18 08:39 Dose: 75 mg Dorzolamide HCl (Trusopt) 1 drop OU Q8 [facility] Last Admin: 07/02/18 08:40 Dose: 1 drop Doxepin HCl (Sinequan) 50 mg PO HS [facility] Last Admin: 07/01/18 21:20 Dose: 50 mg Famotidine (Pepcid) 40 mg PO DAILY [facility] Last Admin: 07/02/18 08:38 Dose: 40 mg Ceftriaxone Sodium 1 gm/ (Sodium Chloride) 100 mls @ 100 mls/hr IVPB DAILY [facility]; Protocol Last Admin: 07/02/18 08:40 Dose: 100 mls/hr Azithromycin 500 mg/ Sodium (Chloride) 250 mls @ 250 mls/hr IVPB DAILY [facility]; Protocol Last Admin: 07/02/18 10:12 Dose: 250 mls/hr Lorazepam (Ativan) 0.5 mg PO Q12 PRN PRN Reason: Anxiety Last Admin: 07/01/18 14:36 Dose: 0.5 mg Losartan Potassium (Cozaar) 50 mg PO DAILY [facility] Last Admin: 07/02/18 08:38 Dose: 50 mg Metoprolol Succinate (Toprol Xl) 25 mg PO DAILY [facility] Last Admin: 07/02/18 08:39 Dose: 25 mg Montelukast Sodium (Singulair) 10 mg PO HS [facility] Last Admin: 07/01/18 21:21 Dose: 10 mg Prednisone (Prednisone Tab) 20 mg PO DAILY [facility] Last Admin: 07/02/18 08:39 Dose: 20 mg Fluticasone/Salmeterol (Advair Diskus 250/50) 1 puff IH Q12 [facility] Last Admin: 07/02/18 08:37 Dose: 1 puff Timolol Maleate (Timoptic 0.5% [facility]) 1 drop OU Q12 [facility] Last Admin: 07/02/18 08:39 Dose: 1 drop Venlafaxine HCl (Effexor Xr) 150 mg PO QPM [facility] Last Admin: 07/01/18 17:22 Dose: 150 mg - Labs Labs: 07/01/18 15:42 06/28/18 14:00 PT 14.3 Seconds (9.8-13.1) H 07/01/18 15:42 INR 1.3 07/01/18 15:42 APTT 27.9 Seconds (25.6-37.1) 07/01/18 15:42 Attending/Attestation - Attestation I have personally seen and examined this patient.: Yes I have fully participated in the care of the patient.: Yes I have reviewed all pertinent clinical information, including history, physical exam and plan: Yes
[2018-06-30] MEDS: Dorzolamide 2% Ophth Soln OU SCH ×3 (01:26→17:16)
[2018-06-30] MEDS: Fluticasone-Salmeterol 250-50mcg Diskus IH SCH ×2 (09:47→23:07)
[2018-06-30] MEDS: Brimonidine 0.2% 50 DROP/5 ML BOTTLE OU SCH ×2 (09:49→23:07)
[2018-06-30] MEDS: Metoprolol Succinate 25 mg XL Tab PO SCH (09:58)
[2018-06-30] MEDS: Azithromycin 500 MG in Sodium Chloride 0.9% 250 ML IVPB SCH (11:25)
--- NOTE | 2018-06-30 16:12 | CP.PCM.PN ---
Subjective - Date & Time of Evaluation Date of Evaluation: 06/30/18 Time of Evaluation: 13:40 - Subjective Subjective: F/U CP headache,no C/P, no SOB, no orthopnea, smiling, Patient'son at bedside Objective - Vital Signs/Intake and Output Vital Signs (last 24 hours): Temp Pulse Resp BP Pulse Ox 98.4 F 65 20 134/71 96 06/30/18 12:16 06/30/18 12:16 06/30/18 12:16 06/30/18 12:16 06/30/18 12:16 - Medications Medications: Current Medications Acetaminophen (Tylenol 325mg Tab) 650 mg PO Q4 PRN PRN Reason: Pain, Mild (1-3) Last Admin: 06/30/18 07:19 Dose: 650 mg Albuterol/Ipratropium (Duoneb 3 Mg/0.5 Mg (3 Ml) Ud) 3 ml INH RQ6 PRN PRN Reason: Shortness of Breath Alprazolam (Xanax) 0.25 mg PO Q8 PRN PRN Reason: Anxiety Stop: 07/05/18 16:44 Last Admin: 06/28/18 18:27 Dose: 0.25 mg Atorvastatin Calcium (Lipitor) 80 mg PO HS [facility] Last Admin: 06/29/18 21:43 Dose: 80 mg Brimonidine Tartrate (Alphagan 0.2% Opht) 1 drop OU Q12 [facility] Last Admin: 06/30/18 09:49 Dose: 1 drop Clopidogrel Bisulfate (Plavix) 75 mg PO DAILY [facility] Last Admin: 06/30/18 09:54 Dose: 75 mg Dorzolamide HCl (Trusopt) 1 drop OU Q8 [facility] Last Admin: 06/30/18 09:59 Dose: 1 drop Doxepin HCl (Sinequan) 50 mg PO HS [facility] Last Admin: 06/29/18 21:43 Dose: 50 mg Famotidine (Pepcid) 40 mg PO DAILY [facility] Last Admin: 06/30/18 09:53 Dose: 40 mg Ceftriaxone Sodium 1 gm/ (Sodium Chloride) 100 mls @ 100 mls/hr IVPB DAILY [facility]; Protocol Last Admin: 06/30/18 09:55 Dose: 100 mls/hr Azithromycin 500 mg/ Sodium (Chloride) 250 mls @ 250 mls/hr IVPB DAILY [facility]; Protocol Last Admin: 06/30/18 11:25 Dose: 250 mls/hr Losartan Potassium (Cozaar) 50 mg PO DAILY [facility] Last Admin: 06/30/18 09:50 Dose: 50 mg Metoprolol Succinate (Toprol Xl) 25 mg PO DAILY [facility] Last Admin: 06/30/18 09:58 Dose: 25 mg Montelukast Sodium (Singulair) 10 mg PO HS [facility] Last Admin: 06/29/18 21:43 Dose: 10 mg Prednisone (Prednisone Tab) 20 mg PO DAILY [facility] Last Admin: 06/30/18 09:54 Dose: 20 mg Fluticasone/Salmeterol (Advair Diskus 250/50) 1 puff IH Q12 [facility] Last Admin: 06/30/18 09:47 Dose: 1 puff Timolol Maleate ([facility]optic [facility] 1 drop OU Q12 [facility] Last Admin: 06/30/18 09:58 Dose: 1 drop Venlafaxine HCl (Effexor Xr) 150 mg PO QPM [facility] Last Admin: 06/29/18 17:02 Dose: 150 mg - Labs Labs: 06/28/18 14:00 06/28/18 14:00 - Constitutional Appears: No Acute Distress - Head Exam Head Exam: NORMAL INSPECTION - Eye Exam Eye Exam: PERRL - ENT Exam ENT Exam: Normal Exam - Neck Exam Neck Exam: Normal Inspection - Respiratory Exam Respiratory Exam: NORMAL BREATHING PATTERN - Cardiovascular Exam Cardiovascular Exam: REGULAR RHYTHM - GI/Abdominal Exam GI & Abdominal Exam: Soft, Normal Bowel Sounds - Extremities Exam Extremities Exam: Normal Inspection - Back Exam Back Exam: NORMAL INSPECTION - Neurological Exam Neurological Exam: Alert, Oriented x3 Additional comments: Follows commands - Psychiatric Exam Psychiatric exam: Anxious, Depressed - Skin Skin Exam: Warm Assessment and Plan (1) Chest pain Status: Acute (2) Angina pectoris Status: Suspected (3) HTN (hypertension) Status: Acute (4) Asthma exacerbation Status: Acute (5) Hypercholesterolemia Status: Chronic (6) Anxiety and depression Status: Chronic - Assessment and Plan (Free Text) Plan: for STT today, continue rest of treatment
[2018-06-30] MEDS: Venlafaxine 150 mg ER Cap PO SCH (17:15)
--- NOTE | 2018-06-30 20:15 | CP.PCM.PN ---
<Saul Loyd - Last Filed: 06/30/18 20:12> Subjective - Date & Time of Evaluation Date of Evaluation: 06/30/18 Time of Evaluation: 20:12 - Subjective Subjective: Saul Loyd DO PGY1 - Internal Medicine [employer] - Cardiology Note for Dr. Lopez No acute events reported overnight; Had complaints of headache throughout the day today for which patient refused NST. Counseled patient on NST and said she was willing to go. She reports her headache, chest pain, and SOB are much improved. Objective - Vital Signs/Intake and Output Vital Signs (last 24 hours): Temp Pulse Resp BP Pulse Ox 98.8 F 82 16 127/71 97 06/30/18 16:46 06/30/18 16:46 06/30/18 16:46 06/30/18 16:46 06/30/18 16:46 Intake and Output: 06/30/18 07/01/18 18:59 06:59 Intake Total 1550 Balance 1550 - Medications Medications: Current Medications Acetaminophen (Tylenol 325mg Tab) 650 mg PO Q4 PRN PRN Reason: Pain, Mild (1-3) Last Admin: 06/30/18 07:19 Dose: 650 mg Albuterol/Ipratropium (Duoneb 3 Mg/0.5 Mg (3 Ml) Ud) 3 ml INH RQ6 PRN PRN Reason: Shortness of Breath Alprazolam (Xanax) 0.25 mg PO Q8 PRN PRN Reason: Anxiety Stop: 07/05/18 16:44 Last Admin: 06/28/18 18:27 Dose: 0.25 mg Atorvastatin Calcium (Lipitor) 80 mg PO [facility] Last Admin: 06/29/18 21:43 Dose: 80 mg Brimonidine Tartrate (Alphagan 0.2% Opht) 1 drop OU Q12 [facility] Last Admin: 06/30/18 09:49 Dose: 1 drop Clopidogrel Bisulfate (Plavix) 75 mg PO DAILY [facility] Last Admin: 06/30/18 09:54 Dose: 75 mg Dorzolamide HCl (Trusopt) 1 drop OU Q8 [facility] Last Admin: 06/30/18 17:16 Dose: 1 drop Doxepin HCl (Sinequan) 50 mg PO [facility] Last Admin: 06/29/18 21:43 Dose: 50 mg Famotidine (Pepcid) 40 mg PO DAILY [facility] Last Admin: 06/30/18 09:53 Dose: 40 mg Ceftriaxone Sodium 1 gm/ (Sodium Chloride) 100 mls @ 100 mls/hr IVPB DAILY [facility]; Protocol Last Admin: 06/30/18 09:55 Dose: 100 mls/hr Azithromycin 500 mg/ Sodium (Chloride) 250 mls @ 250 mls/hr IVPB DAILY [facility]; Protocol Last Admin: 06/30/18 11:25 Dose: 250 mls/hr Losartan Potassium (Cozaar) 50 mg PO DAILY [facility] Last Admin: 06/30/18 09:50 Dose: 50 mg Metoprolol Succinate (Toprol Xl) 25 mg PO DAILY [facility] Last Admin: 06/30/18 09:58 Dose: 25 mg Montelukast Sodium (Singulair) 10 mg PO HS [facility] Last Admin: 06/29/18 21:43 Dose: 10 mg Prednisone (Prednisone Tab) 20 mg PO DAILY [facility] Last Admin: 06/30/18 09:54 Dose: 20 mg Fluticasone/Salmeterol (Advair Diskus 250/50) 1 puff IH Q12 [facility] Last Admin: 06/30/18 09:47 Dose: 1 puff Timolol Maleate [facility] 1 drop OU Q12 [facility] Last Admin: 06/30/18 09:58 Dose: 1 drop Venlafaxine HCl (Effexor Xr) 150 mg PO QPM [facility] Last Admin: 06/30/18 17:15 Dose: 150 mg - Labs Labs: 06/28/18 14:00 06/28/18 14:00 - Constitutional Appears: Well, Non-toxic, No Acute Distress - Head Exam Head Exam: ATRAUMATIC, NORMOCEPHALIC - Eye Exam Eye Exam: EOMI, Normal appearance, PERRL - Respiratory Exam Respiratory Exam: Clear to Ausculation Bilateral, NORMAL BREATHING PATTERN - Cardiovascular Exam Cardiovascular Exam: REGULAR RHYTHM, RRR, +S1, +S2. absent: Murmur - GI/Abdominal Exam GI & Abdominal Exam: Soft. absent: Tenderness - Extremities Exam Extremities Exam: Normal Capillary Refill. absent: Pedal Edema - Neurological Exam Neurological Exam: Alert, Awake - Psychiatric Exam Psychiatric exam: Normal Affect, Normal Mood - Skin Skin Exam: Dry, Intact, Normal Color, Warm Assessment and Plan (1) Chest pain Status: Acute (2) HTN (hypertension) Status: Acute (3) Hypercholesterolemia Status: Chronic - Assessment and Plan (Free Text) Plan: Patient continues to voice c/o chest pain however significantly improved at this time Possible underlying psychogenic component (anxiety/ depression) C/w Lipitor, Palvix, Cozaar 50, Toprol XL 25, Will make patient NPO again for NST tomorrow. Further reccs per Dr. Lopez <Kurt Lopez - Last Filed: 07/02/18 14:43> Objective - Vital Signs/Intake and Output Vital Signs (last 24 hours): Temp Pulse Resp BP Pulse Ox 97.9 F 73 20 112/81 98 07/02/18 13:00 07/02/18 13:00 07/02/18 13:00 07/02/18 13:00 07/02/18 13:00 - Medications Medications: Current Medications Acetaminophen (Tylenol 325mg Tab) 650 mg PO Q4 PRN PRN Reason: Pain, Mild (1-3) Last Admin: 07/02/18 08:36 Dose: 650 mg Albuterol/Ipratropium (Duoneb 3 Mg/0.5 Mg (3 Ml) Ud) 3 ml INH RQ6 PRN PRN Reason: Shortness of Breath Alprazolam (Xanax) 0.25 mg PO Q8 PRN PRN Reason: Anxiety Stop: 07/05/18 16:44 Last Admin: 06/30/18 23:10 Dose: 0.25 mg Atorvastatin Calcium (Lipitor) 80 mg PO [facility] Last Admin: 07/01/18 23:00 Dose: 80 mg Brimonidine Tartrate (Alphagan 0.2% Opht) 1 drop OU Q12 [facility] Last Admin: 07/02/18 08:37 Dose: 1 drop Clopidogrel Bisulfate (Plavix) 75 mg PO DAILY [facility] Last Admin: 07/02/18 08:39 Dose: 75 mg Dorzolamide HCl (Trusopt) 1 drop OU Q8 [facility] Last Admin: 07/02/18 08:40 Dose: 1 drop Doxepin HCl (Sinequan) 50 mg PO HS [facility] Last Admin: 07/01/18 21:20 Dose: 50 mg Famotidine (Pepcid) 40 mg PO DAILY [facility] Last Admin: 07/02/18 08:38 Dose: 40 mg Ceftriaxone Sodium 1 gm/ (Sodium Chloride) 100 mls @ 100 mls/hr IVPB DAILY [facility]; Protocol Last Admin: 07/02/18 08:40 Dose: 100 mls/hr Azithromycin 500 mg/ Sodium (Chloride) 250 mls @ 250 mls/hr IVPB DAILY [facility]; Protocol Last Admin: 07/02/18 10:12 Dose: 250 mls/hr Lorazepam (Ativan) 0.5 mg PO Q12 PRN PRN Reason: Anxiety Last Admin: 07/01/18 14:36 Dose: 0.5 mg Losartan Potassium (Cozaar) 50 mg PO DAILY [facility] Last Admin: 07/02/18 08:38 Dose: 50 mg Metoprolol Succinate (Toprol Xl) 25 mg PO DAILY [facility] Last Admin: 07/02/18 08:39 Dose: 25 mg Montelukast Sodium (Singulair) 10 mg PO HS [facility] Last Admin: 07/01/18 21:21 Dose: 10 mg Prednisone (Prednisone Tab) 20 mg PO DAILY [facility] Last Admin: 07/02/18 08:39 Dose: 20 mg Fluticasone/Salmeterol (Advair Diskus 250/50) 1 puff IH Q12 [facility] Last Admin: 07/02/18 08:37 Dose: 1 puff Timolol Maleate (Timoptic 0.5% [facility]) 1 drop OU Q12 [facility] Last Admin: 07/02/18 08:39 Dose: 1 drop Venlafaxine HCl (Effexor Xr) 150 mg PO QPM [facility] Last Admin: 07/01/18 17:22 Dose: 150 mg - Labs Labs: 07/01/18 15:42 06/28/18 14:00 PT 14.3 Seconds (9.8-13.1) H 07/01/18 15:42 INR 1.3 07/01/18 15:42 APTT 27.9 Seconds (25.6-37.1) 07/01/18 15:42 Attending/Attestation - Attestation I have personally seen and examined this patient.: Yes I have fully participated in the care of the patient.: Yes I have reviewed all pertinent clinical information, including history, physical exam and plan: Yes Notes (Text): 07/02/18 14:43 plan for NST
[2018-07-01] MEDS: Dorzolamide 2% Ophth Soln OU SCH ×3 (01:35→17:22)
[2018-07-01] MEDS: Fluticasone-Salmeterol 250-50mcg Diskus IH SCH ×2 (11:00→21:19)
[2018-07-01] MEDS: Brimonidine 0.2% 50 DROP/5 ML BOTTLE OU SCH ×2 (11:00→21:20)
[2018-07-01] MEDS: Azithromycin 500 MG in Sodium Chloride 0.9% 250 ML IVPB SCH (11:03)
[2018-07-01] MEDS: Metoprolol Succinate 25 mg XL Tab PO SCH (11:11)
--- NOTE | 2018-07-01 14:44 | CP.PCM.PN ---
Subjective - Date & Time of Evaluation Date of Evaluation: 07/01/18 Time of Evaluation: 10:30 - Subjective Subjective: F/U CP no SOB, no C/P,smiling at times, patient states " She wants to go home" Objective - Vital Signs/Intake and Output Vital Signs (last 24 hours): Temp Pulse Resp BP Pulse Ox 97.9 F 71 20 154/94 H 98 07/01/18 12:42 07/01/18 13:34 07/01/18 12:42 07/01/18 13:34 07/01/18 12:42 Intake and Output: 07/01/18 07/01/18 06:59 18:59 Intake Total 1550 Balance 1550 - Medications Medications: Current Medications Acetaminophen (Tylenol 325mg Tab) 650 mg PO Q4 PRN PRN Reason: Pain, Mild (1-3) Last Admin: 06/30/18 07:19 Dose: 650 mg Albuterol/Ipratropium (Duoneb 3 Mg/0.5 Mg (3 Ml) Ud) 3 ml INH RQ6 PRN PRN Reason: Shortness of Breath Alprazolam (Xanax) 0.25 mg PO Q8 PRN PRN Reason: Anxiety Stop: 07/05/18 16:44 Last Admin: 06/30/18 23:10 Dose: 0.25 mg Atorvastatin Calcium (Lipitor) 80 mg PO HS [facility] Last Admin: 06/30/18 23:07 Dose: 80 mg Brimonidine Tartrate (Alphagan 0.2% Opht) 1 drop OU Q12 [facility] Last Admin: 07/01/18 11:00 Dose: 1 drop Clopidogrel Bisulfate (Plavix) 75 mg PO DAILY [facility] Last Admin: 07/01/18 11:01 Dose: 75 mg Dorzolamide HCl (Trusopt) 1 drop OU Q8 [facility] Last Admin: 07/01/18 11:05 Dose: 1 drop Doxepin HCl (Sinequan) 50 mg PO HS [facility] Last Admin: 06/30/18 23:06 Dose: 50 mg Famotidine (Pepcid) 40 mg PO DAILY [facility] Last Admin: 07/01/18 11:04 Dose: 40 mg Ceftriaxone Sodium 1 gm/ (Sodium Chloride) 100 mls @ 100 mls/hr IVPB DAILY [facility]; Protocol Last Admin: 07/01/18 11:02 Dose: 100 mls/hr Azithromycin 500 mg/ Sodium (Chloride) 250 mls @ 250 mls/hr IVPB DAILY [facility]; Protocol Last Admin: 07/01/18 11:03 Dose: 250 mls/hr Lorazepam (Ativan) 0.5 mg PO Q12 PRN PRN Reason: Anxiety Last Admin: 07/01/18 14:36 Dose: 0.5 mg Losartan Potassium (Cozaar) 50 mg PO DAILY [facility] Last Admin: 07/01/18 11:11 Dose: 50 mg Metoprolol Succinate (Toprol Xl) 25 mg PO DAILY [facility] Last Admin: 07/01/18 11:11 Dose: 25 mg Montelukast Sodium (Singulair) 10 mg PO HS [facility] Last Admin: 06/30/18 23:06 Dose: 10 mg Prednisone (Prednisone Tab) 20 mg PO DAILY [facility] Last Admin: 07/01/18 11:01 Dose: 20 mg Fluticasone/Salmeterol (Advair Diskus 250/50) 1 puff IH Q12 [facility] Last Admin: 07/01/18 11:00 Dose: 1 puff Timolol Maleate (Timoptic 0.5% [facility]) 1 drop OU Q12 [facility] Last Admin: 07/01/18 11:04 Dose: 1 drop Venlafaxine HCl (Effexor Xr) 150 mg PO QPM [facility] Last Admin: 06/30/18 17:15 Dose: 150 mg - Labs Labs: 06/28/18 14:00 06/28/18 14:00 - Constitutional Appears: No Acute Distress - Head Exam Head Exam: NORMAL INSPECTION - Eye Exam Eye Exam: PERRL - ENT Exam ENT Exam: Normal Exam - Neck Exam Neck Exam: Normal Inspection - Respiratory Exam Respiratory Exam: NORMAL BREATHING PATTERN - Cardiovascular Exam Cardiovascular Exam: REGULAR RHYTHM - GI/Abdominal Exam GI & Abdominal Exam: Soft, Normal Bowel Sounds - Extremities Exam Extremities Exam: Normal Inspection - Back Exam Back Exam: NORMAL INSPECTION - Neurological Exam Neurological Exam: Alert, Oriented x3 Additional comments: Follows commands, no focal motor/sensory deficit - Psychiatric Exam Psychiatric exam: Anxious, Depressed - Skin Skin Exam: Warm Assessment and Plan (1) Chest pain Status: Acute (2) Angina pectoris Status: Suspected (3) HTN (hypertension) Status: Acute (4) Asthma exacerbation Status: Resolved (5) Hypercholesterolemia Status: Chronic (6) Major depression Status: Acute - Assessment and Plan (Free Text) Plan: continue current Tx ,Effexor, Sinequan, Xanax, Lipitor , Plavix and rest of treatment for STT today, Psychiatric managed services consultant recommended Psychiatric Unit AD after medical cleared
[2018-07-01 16:13] LABS: HEMOGLOBIN 13.2 g/dL (12.0-16.0); MEAN CELL VOLUME 91.7 fl (81.0-99.0); MEAN CORPUSCULAR HEMOGLOBIN 30.1 pg (27.0-31.0); MEAN CORPUSCULAR HGB CONC 32.9 g/dL (33.0-37.0); RBC 4.39 Mil/uL (3.80-5.20); RED CELL DISTRIBUTION WIDTH 14.6 % (11.5-14.5); WHITE BLOOD COUNT 11.9 K/uL (4.8-10.8)
[2018-07-01 16:31] LABS: INR 1.3; PROTHROMBIN TIME 14.3 Seconds (9.8-13.1)
[2018-07-01 16:34] LABS: PARTIAL THROMBOPLASTIN TIME 27.9 Seconds (25.6-37.1)
[2018-07-01] MEDS: Venlafaxine 150 mg ER Cap PO SCH (17:22)
--- NOTE | 2018-07-01 17:27 | CP.PCM.PN ---
<Saul Loyd - Last Filed: 07/01/18 22:12> Subjective - Date & Time of Evaluation Date of Evaluation: 07/01/18 Time of Evaluation: 17:27 - Subjective Subjective: Saul Loyd DO PGY1 - Internal Medicine Load Out Worker - Cardiology Note for Dr. Lopez Patient was seen and examined at bedside this afternoon Underwent NST this AM Patient reportedly try to AMA today No CP / SOB/ Palp upon evaluation today Objective - Vital Signs/Intake and Output Vital Signs (last 24 hours): Temp Pulse Resp BP Pulse Ox 98.6 F 83 20 126/71 98 07/01/18 15:44 07/01/18 15:44 07/01/18 15:44 07/01/18 15:44 07/01/18 15:44 Intake and Output: 07/01/18 07/01/18 06:59 18:59 Intake Total 1550 Balance 1550 - Medications Medications: Current Medications Acetaminophen (Tylenol 325mg Tab) 650 mg PO Q4 PRN PRN Reason: Pain, Mild (1-3) Last Admin: 06/30/18 07:19 Dose: 650 mg Albuterol/Ipratropium (Duoneb 3 Mg/0.5 Mg (3 Ml) Ud) 3 ml INH RQ6 PRN PRN Reason: Shortness of Breath Alprazolam (Xanax) 0.25 mg PO Q8 PRN PRN Reason: Anxiety Stop: 07/05/18 16:44 Last Admin: 06/30/18 23:10 Dose: 0.25 mg Atorvastatin Calcium (Lipitor) 80 mg PO HS [facility] Last Admin: 06/30/18 23:07 Dose: 80 mg Brimonidine Tartrate (Alphagan 0.2% Opht) 1 drop OU Q12 [facility] Last Admin: 07/01/18 11:00 Dose: 1 drop Clopidogrel Bisulfate (Plavix) 75 mg PO DAILY [facility] Last Admin: 07/01/18 11:01 Dose: 75 mg Dorzolamide HCl (Trusopt) 1 drop OU Q8 [facility] Last Admin: 07/01/18 17:22 Dose: 1 drop Doxepin HCl (Sinequan) 50 mg PO HS [facility] Last Admin: 06/30/18 23:06 Dose: 50 mg Famotidine (Pepcid) 40 mg PO DAILY [facility] Last Admin: 07/01/18 11:04 Dose: 40 mg Ceftriaxone Sodium 1 gm/ (Sodium Chloride) 100 mls @ 100 mls/hr IVPB DAILY [facility]; Protocol Last Admin: 07/01/18 11:02 Dose: 100 mls/hr Azithromycin 500 mg/ Sodium (Chloride) 250 mls @ 250 mls/hr IVPB DAILY [facility]; Protocol Last Admin: 07/01/18 11:03 Dose: 250 mls/hr Lorazepam (Ativan) 0.5 mg PO Q12 PRN PRN Reason: Anxiety Last Admin: 07/01/18 14:36 Dose: 0.5 mg Losartan Potassium (Cozaar) 50 mg PO DAILY [facility] Last Admin: 07/01/18 11:11 Dose: 50 mg Metoprolol Succinate (Toprol Xl) 25 mg PO DAILY [facility] Last Admin: 07/01/18 11:11 Dose: 25 mg Montelukast Sodium (Singulair) 10 mg PO HS [facility] Last Admin: 06/30/18 23:06 Dose: 10 mg Prednisone (Prednisone Tab) 20 mg PO DAILY [facility] Last Admin: 07/01/18 11:01 Dose: 20 mg Fluticasone/Salmeterol (Advair Diskus 250/50) 1 puff IH Q12 [facility] Last Admin: 07/01/18 11:00 Dose: 1 puff Timolol Maleate (Timoptic 0.5% [facility]) 1 drop OU Q12 [facility] Last Admin: 07/01/18 11:04 Dose: 1 drop Venlafaxine HCl (Effexor Xr) 150 mg PO QPM [facility] Last Admin: 07/01/18 17:22 Dose: 150 mg - Labs Labs: 07/01/18 15:42 06/28/18 14:00 PT 14.3 Seconds (9.8-13.1) H 07/01/18 15:42 INR 1.3 07/01/18 15:42 APTT 27.9 Seconds (25.6-37.1) 07/01/18 15:42 - Constitutional Appears: Well, Non-toxic, No Acute Distress - Head Exam Head Exam: ATRAUMATIC, NORMOCEPHALIC - Eye Exam Eye Exam: EOMI, Normal appearance, PERRL - Respiratory Exam Respiratory Exam: Clear to Ausculation Bilateral, NORMAL BREATHING PATTERN - Cardiovascular Exam Cardiovascular Exam: REGULAR RHYTHM, RRR, +S1, +S2. absent: Murmur - GI/Abdominal Exam GI & Abdominal Exam: Soft. absent: Tenderness - Extremities Exam Extremities Exam: Normal Capillary Refill. absent: Pedal Edema; Some bruising appreciated on Lower extremity - Neurological Exam Neurological Exam: Alert, Awake - Psychiatric Exam Psychiatric exam: Normal Affect, Normal Mood - Skin Skin Exam: Dry, Intact, Normal Color, Warm Assessment and Plan (1) Chest pain Status: Acute (2) HTN (hypertension) Status: Acute (3) Hypercholesterolemia Status: Chronic - Assessment and Plan (Free Text) Plan: C/w Lipitor, Palvix, Cozaar 50, Toprol XL 25, Upon review of NST; possible findings of small infero septal defect noted - HOWEVER, CAD cannot be fully included or excluded due to the presence of bowel loop attenuation. Will recommend to continue w/ medical management at this time. If CP recurs while patient is undergoing medical management, then can consider for cardiac catheterization <Kurt Lopez - Last Filed: 07/02/18 14:43> Objective - Vital Signs/Intake and Output Vital Signs (last 24 hours): Temp Pulse Resp BP Pulse Ox 97.9 F 73 20 112/81 98 07/02/18 13:00 07/02/18 13:00 07/02/18 13:00 07/02/18 13:00 07/02/18 13:00 - Medications Medications: Current Medications Acetaminophen (Tylenol 325mg Tab) 650 mg PO Q4 PRN PRN Reason: Pain, Mild (1-3) Last Admin: 07/02/18 08:36 Dose: 650 mg Albuterol/Ipratropium (Duoneb 3 Mg/0.5 Mg (3 Ml) Ud) 3 ml INH RQ6 PRN PRN Reason: Shortness of Breath Alprazolam (Xanax) 0.25 mg PO Q8 PRN PRN Reason: Anxiety Stop: 07/05/18 16:44 Last Admin: 06/30/18 23:10 Dose: 0.25 mg Atorvastatin Calcium (Lipitor) 80 mg PO HS [facility] Last Admin: 07/01/18 23:00 Dose: 80 mg Brimonidine Tartrate (Alphagan 0.2% Opht) 1 drop OU Q12 [facility] Last Admin: 07/02/18 08:37 Dose: 1 drop Clopidogrel Bisulfate (Plavix) 75 mg PO DAILY [facility] Last Admin: 07/02/18 08:39 Dose: 75 mg Dorzolamide HCl (Trusopt) 1 drop OU Q8 [facility] Last Admin: 07/02/18 08:40 Dose: 1 drop Doxepin HCl (Sinequan) 50 mg PO HS [facility] Last Admin: 07/01/18 21:20 Dose: 50 mg Famotidine (Pepcid) 40 mg PO DAILY [facility] Last Admin: 07/02/18 08:38 Dose: 40 mg Ceftriaxone Sodium 1 gm/ (Sodium Chloride) 100 mls @ 100 mls/hr IVPB DAILY [facility]; Protocol Last Admin: 07/02/18 08:40 Dose: 100 mls/hr Azithromycin 500 mg/ Sodium (Chloride) 250 mls @ 250 mls/hr IVPB DAILY [facility]; Protocol Last Admin: 07/02/18 10:12 Dose: 250 mls/hr Lorazepam (Ativan) 0.5 mg PO Q12 PRN PRN Reason: Anxiety Last Admin: 07/01/18 14:36 Dose: 0.5 mg Losartan Potassium (Cozaar) 50 mg PO DAILY [facility] Last Admin: 07/02/18 08:38 Dose: 50 mg Metoprolol Succinate (Toprol Xl) 25 mg PO DAILY [facility] Last Admin: 07/02/18 08:39 Dose: 25 mg Montelukast Sodium (Singulair) 10 mg PO HS [facility] Last Admin: 07/01/18 21:21 Dose: 10 mg Prednisone (Prednisone Tab) 20 mg PO DAILY [facility] Last Admin: 07/02/18 08:39 Dose: 20 mg Fluticasone/Salmeterol (Advair Diskus 250/50) 1 puff IH Q12 [facility] Last Admin: 07/02/18 08:37 Dose: 1 puff Timolol Maleate (Timoptic 0.5% [facility]) 1 drop OU Q12 [facility] Last Admin: 07/02/18 08:39 Dose: 1 drop Venlafaxine HCl (Effexor Xr) 150 mg PO QPM [facility] Last Admin: 07/01/18 17:22 Dose: 150 mg - Labs Labs: 07/01/18 15:42 06/28/18 14:00 PT 14.3 Seconds (9.8-13.1) H 07/01/18 15:42 INR 1.3 07/01/18 15:42 APTT 27.9 Seconds (25.6-37.1) 07/01/18 15:42 Attending/Attestation - Attestation I have personally seen and examined this patient.: Yes I have fully participated in the care of the patient.: Yes I have reviewed all pertinent clinical information, including history, physical exam and plan: Yes
[2018-07-02] MEDS: Dorzolamide 2% Ophth Soln OU SCH ×3 (02:00→18:07)
[2018-07-02] MEDS: Fluticasone-Salmeterol 250-50mcg Diskus IH SCH (08:37)
[2018-07-02] MEDS: Brimonidine 0.2% 50 DROP/5 ML BOTTLE OU SCH (08:37)
[2018-07-02] MEDS: Metoprolol Succinate 25 mg XL Tab PO SCH (08:39)
[2018-07-02] MEDS: Azithromycin 500 MG in Sodium Chloride 0.9% 250 ML IVPB SCH (10:12)
--- NOTE | 2018-07-02 11:35 | CARD ---
APPROVED REPORT Date of service: 06/29/2018 EKG Measurement Heart [id number] <Conclusion> Normal sinus rhythm Nonspecific ST-T changes Abnormal ECG
--- NOTE | 2018-07-02 13:40 | CP.PCM.CON ---
History of Present Illness - History of Present Illness History of Present Illness: follow up consult pt is a 77 y[facility] F[facility] for Chest [facility], , pt on initial evaluation reported depressed mood due to being lonely also reported increased anxiety, on evaluation today, pt calm and cooperative, reported improved mood presenting with brighter affect, stated receiving some social support from her son pt denied changes in sleep or appetite, denied any current suicidal or homicidal idetion denied perceptual disturbances Past Patient History - Infectious Disease Hx of Infectious Diseases: None - Past Medical History & Family History Past Medical History?: Yes - Past Social History Smoking Status: Never Smoked Alcohol: None Drugs: Denies Home Situation {Lives}: Alone - CARDIAC Hx Hypercholesterolemia: Yes Hx Hypertension: Yes - PULMONARY Hx Asthma: Yes - NEUROLOGICAL Hx Neurological Disorder: No - HEENT Hx HEENT Problems: No Other/Comment: Use eyeglasses - RENAL Hx Chronic Kidney Disease: No - ENDOCRINE/METABOLIC Hx Endocrine Disorders: No - HEMATOLOGICAL/ONCOLOGICAL Hx Blood Disorders: No - INTEGUMENTARY Hx Dermatological Problems: No - MUSCULOSKELETAL/RHEUMATOLOGICAL Hx Arthritis: Yes - GASTROINTESTINAL Hx Gastrointestinal Disorders: Yes Hx Constipation: Yes Hx Gastroesophageal Reflux: Yes - GENITOURINARY/GYNECOLOGICAL Hx Genitourinary Disorders: No - PSYCHIATRIC Hx Substance Use: No - SURGICAL HISTORY Hx Surgeries: Yes Hx Appendectomy: Yes - ANESTHESIA Hx Anesthesia: Yes Hx Anesthesia Reactions: No Hx Malignant Hyperthermia: No Meds Allergies/Adverse Reactions: Allergies Allergy/AdvReac Type Severity Reaction Status Date / Time aspirin Allergy RASH Verified 11/05/17 11:28 - Medications Medications: Current Medications Acetaminophen (Tylenol 325mg Tab) 650 mg PO Q4 PRN PRN Reason: Pain, Mild (1-3) Last Admin: 07/02/18 08:36 Dose: 650 mg Albuterol/Ipratropium (Duoneb 3 Mg/0.5 Mg (3 Ml) Ud) 3 ml INH RQ6 PRN PRN Reason: Shortness of Breath Alprazolam (Xanax) 0.25 mg PO Q8 PRN PRN Reason: Anxiety Stop: 07/05/18 16:44 Last Admin: 06/30/18 23:10 Dose: 0.25 mg Atorvastatin Calcium (Lipitor) 80 mg PO HS [facility] Last Admin: 07/01/18 23:00 Dose: 80 mg Brimonidine Tartrate (Alphagan 0.2% Opht) 1 drop OU Q12 [facility] Last Admin: 07/02/18 08:37 Dose: 1 drop Clopidogrel Bisulfate (Plavix) 75 mg PO DAILY [facility] Last Admin: 07/02/18 08:39 Dose: 75 mg Dorzolamide HCl (Trusopt) 1 drop OU Q8 [facility] Last Admin: 07/02/18 08:40 Dose: 1 drop Doxepin HCl (Sinequan) 50 mg PO HS [facility] Last Admin: 07/01/18 21:20 Dose: 50 mg Famotidine (Pepcid) 40 mg PO DAILY [facility] Last Admin: 07/02/18 08:38 Dose: 40 mg Ceftriaxone Sodium 1 gm/ (Sodium Chloride) 100 mls @ 100 mls/hr IVPB DAILY [facility]; Protocol Last Admin: 07/02/18 08:40 Dose: 100 mls/hr Azithromycin 500 mg/ Sodium (Chloride) 250 mls @ 250 mls/hr IVPB DAILY [facility]; Protocol Last Admin: 07/02/18 10:12 Dose: 250 mls/hr Lorazepam (Ativan) 0.5 mg PO Q12 PRN PRN Reason: Anxiety Last Admin: 07/01/18 14:36 Dose: 0.5 mg Losartan Potassium (Cozaar) 50 mg PO DAILY [facility] Last Admin: 07/02/18 08:38 Dose: 50 mg Metoprolol Succinate (Toprol Xl) 25 mg PO DAILY [facility] Last Admin: 07/02/18 08:39 Dose: 25 mg Montelukast Sodium (Singulair) 10 mg PO [facility] Last Admin: 07/01/18 21:21 Dose: 10 mg Prednisone (Prednisone Tab) 20 mg PO DAILY [facility] Last Admin: 07/02/18 08:39 Dose: 20 mg Fluticasone/Salmeterol (Advair Diskus 250/50) 1 puff IH Q12 [facility] Last Admin: 07/02/18 08:37 Dose: 1 puff Timolol Maleate (Timoptic 0.5% [facility]) 1 drop OU Q12 [facility] Last Admin: 07/02/18 08:39 Dose: 1 drop Venlafaxine HCl (Effexor Xr) 150 mg PO QPM [facility] Last Admin: 07/01/18 17:22 Dose: 150 mg Results - Vital Signs Recent Vital Signs: Last Vital Signs Temp 97.3 F L 07/02/18 09:00 Pulse 70 07/02/18 09:00 Resp 18 07/02/18 09:00 BP 146/79 07/02/18 09:00 Pulse Ox 95 07/02/18 09:00 - Labs Result Diagrams: 07/01/18 15:42 06/28/18 14:00 Labs: Laboratory Results - last 24 hr 07/01/18 07/01/18 15:42 15:42 WBC 11.9 H RBC 4.39 Hgb 13.2 Hct 40.2 MCV 91.7 MCH 30.1 MCHC 32.9 L RDW 14.6 H Plt Count 443 H D PT 14.3 H INR 1.3 APTT 27.9 Assessment & Plan - Assessment and Plan (Free Text) Assessment: depression panic disorder Plan: pt at current mental status not danger to self or others, denied suicidal or homicidal ideation denied perceptual disturbances pt psychiatricaly cleared for discharge upon medical clearance recommend nursing home social worker to refer pt to outpatient psychiatric services on discharge
--- NOTE | 2018-07-02 13:59 | CP.PCM.PN ---
Objective - Vital Signs/Intake and Output Vital Signs (last 24 hours): Temp Pulse Resp BP Pulse Ox 97.3 F L 70 18 146/79 95 07/02/18 09:00 07/02/18 09:00 07/02/18 09:00 07/02/18 09:00 07/02/18 09:00 - Medications Medications: Current Medications Acetaminophen (Tylenol 325mg Tab) 650 mg PO Q4 PRN PRN Reason: Pain, Mild (1-3) Last Admin: 07/02/18 08:36 Dose: 650 mg Albuterol/Ipratropium (Duoneb 3 Mg/0.5 Mg (3 Ml) Ud) 3 ml INH RQ6 PRN PRN Reason: Shortness of Breath Alprazolam (Xanax) 0.25 mg PO Q8 PRN PRN Reason: Anxiety Stop: 07/05/18 16:44 Last Admin: 06/30/18 23:10 Dose: 0.25 mg Atorvastatin Calcium (Lipitor) 80 mg PO [facility] Last Admin: 07/01/18 23:00 Dose: 80 mg Brimonidine Tartrate (Alphagan 0.2% Opht) 1 drop OU Q12 [facility] Last Admin: 07/02/18 08:37 Dose: 1 drop Clopidogrel Bisulfate (Plavix) 75 mg PO DAILY [facility] Last Admin: 07/02/18 08:39 Dose: 75 mg Dorzolamide HCl (Trusopt) 1 drop OU Q8 [facility] Last Admin: 07/02/18 08:40 Dose: 1 drop Doxepin HCl (Sinequan) 50 mg PO [facility] Last Admin: 07/01/18 21:20 Dose: 50 mg Famotidine (Pepcid) 40 mg PO DAILY [facility] Last Admin: 07/02/18 08:38 Dose: 40 mg Ceftriaxone Sodium 1 gm/ (Sodium Chloride) 100 mls @ 100 mls/hr IVPB DAILY [facility]; Protocol Last Admin: 07/02/18 08:40 Dose: 100 mls/hr Azithromycin 500 mg/ Sodium (Chloride) 250 mls @ 250 mls/hr IVPB DAILY [facility]; Protocol Last Admin: 07/02/18 10:12 Dose: 250 mls/hr Lorazepam (Ativan) 0.5 mg PO Q12 PRN PRN Reason: Anxiety Last Admin: 07/01/18 14:36 Dose: 0.5 mg Losartan Potassium (Cozaar) 50 mg PO DAILY [facility] Last Admin: 07/02/18 08:38 Dose: 50 mg Metoprolol Succinate (Toprol Xl) 25 mg PO DAILY [facility] Last Admin: 07/02/18 08:39 Dose: 25 mg Montelukast Sodium (Singulair) 10 mg PO HS [facility] Last Admin: 07/01/18 21:21 Dose: 10 mg Prednisone (Prednisone Tab) 20 mg PO DAILY [facility] Last Admin: 07/02/18 08:39 Dose: 20 mg Fluticasone/Salmeterol (Advair Diskus 250/50) 1 puff IH Q12 [facility] Last Admin: 07/02/18 08:37 Dose: 1 puff Timolol Maleate (Timoptic 0.5% [facility]) 1 drop OU Q12 [facility] Last Admin: 07/02/18 08:39 Dose: 1 drop Venlafaxine HCl (Effexor Xr) 150 mg PO QPM [facility] Last Admin: 07/01/18 17:22 Dose: 150 mg - Labs Labs: 07/01/18 15:42 06/28/18 14:00 PT 14.3 Seconds (9.8-13.1) H 07/01/18 15:42 INR 1.3 07/01/18 15:42 APTT 27.9 Seconds (25.6-37.1) 07/01/18 15:42 Assessment and Plan (1) Chest pain Status: Acute (2) Angina pectoris Status: Suspected (3) HTN (hypertension) Status: Acute (4) Asthma exacerbation Status: Resolved (5) Hypercholesterolemia Status: Chronic (6) Major depression Status: Acute
--- NOTE | 2018-07-02 14:37 | PQF ---
PROVIDER RESPONSE TEXT: Provider was unable to determine a response for this query. REVIEWER QUERY TEXT: COPD Specificity Cardiology has an additional diagnosis of COPD . Please clarify if COPD is ruled in or ruled out. If ruled in please clarify if it is stable versus an acute exacerbation, see below COPD - Chronic Obstructive Pulmonary Disease is documented in the Medical Record. Please specify the associated condition (includes suspected or probable) Such as: -- Bronchitis - acute -- Asthmatic - with /without status asthmaticus -- Exacerbation - acute -- Lower respiratory infection - acute -- Other, please specify The patient's Clinical Indicators include: Admitted with chest pain, cough, chest congestion, body pain, SOB. CXR: No evidence of acute pulmonary disease. RX : IVAB, Prednisone, Duonebs, Advair Diskus, Singulair Query created by: Jenniffer Manrique on 07/01/2018 9:15 AM Electronically signed by: Bobby Rodriguez MD 07/02/2018 2:35 PM
--- NOTE | 2018-07-02 14:37 | PQF ---
PROVIDER RESPONSE TEXT: Provider was unable to determine a response for this query. REVIEWER QUERY TEXT: Asthma Specificity and Type Asthma Exacerbation is documented in the Medical Record. Please specify the type and severity of ast hma Such as: -- Mild intermittent -- Mild persistent -- Moderate persistent -- Severe persistent -- Exercise induced bronchospasm -- Cough variant asthma -- Other, please specify The patient's Clinical Indicators include: Admitted with chest pain, cough, chest congestion, body pain, SOB. CXR: No evidence of acute pulmonary disease. RX : IVAB, Prednisone, Duonebs, Advair Diskus, Singulair Query created by: Jenniffer Manrique on 07/01/2018 9:11 AM Electronically signed by: Bobby Rodriguez MD 07/02/2018 2:35 PM
--- NOTE | 2018-07-02 14:38 | PQF ---
PROVIDER RESPONSE TEXT: Patient is not being treated for Pneumonia on this admission. REVIEWER QUERY TEXT: Pneumonia Specificity Patient with recent Hx PNA, treated by PMD with Doxycycline with 5th day of treatment. CXR No active disase. Patient is currently on Zithromax and Rocephin. Is the pneumonia currently being treated on this admission? If yes please clarify the possible type. Pneumonia is documented in the Medical Record. Please specify the type of pneumonia and the causative organism (includes probable or suspected) Such as: Type: -- Aspiration pneumonia (please also specify the aspirate) -- Bacterial (please document suspected or probable organism) -- Bronchopneumonia (please document suspected or probable organism) -- Interstitial pneumonia -- Organizing pneumonia / BOOP -- Viral -- Other, please specify The patient's Clinical Indicators include: Admitted with chest pain, cough, chest congestion, body pain, SOB. CXR: No evidence of acute pulmonary disease. RX : IVAB, Prednisone, Duonebs, Advair Diskus, Singulair Query created by: Jenniffer Manrique on 07/01/2018 9:19 AM Electronically signed by: Bobby Rodriguez MD 07/02/2018 2:35 PM
[2018-07-02 16:34] VITALS: BP 132/79; PULSE 78; RESP 16; TEMP 98.1; O2SAT 97
[2018-07-02] MEDS: Venlafaxine 150 mg ER Cap PO SCH (18:07)
--- NOTE | 2018-07-02 19:36 | CP.PCM.PN ---
Subjective - Date & Time of Evaluation Date of Evaluation: 07/02/18 Time of Evaluation: 19:34 - Subjective Subjective: Saul Loyd DO PGY1 - Internal Medicine [employer] Program Chair - Cardiology Note for Dr. Lopez Patient was seen and examined at bedside this morning, no acute events reported overnight. Patient denies any chest pain, shortness of breath, palpitations. Patient only complaining of wanting to go home today. Objective - Vital Signs/Intake and Output Vital Signs (last 24 hours): Temp Pulse Resp BP Pulse Ox 98.1 F 78 16 132/79 97 07/02/18 17:00 07/02/18 17:00 07/02/18 17:00 07/02/18 17:00 07/02/18 17:00 - Medications Medications: Current Medications Acetaminophen (Tylenol 325mg Tab) 650 mg PO Q4 PRN PRN Reason: Pain, Mild (1-3) Last Admin: 07/02/18 08:36 Dose: 650 mg Albuterol/Ipratropium (Duoneb 3 Mg/0.5 Mg (3 Ml) Ud) 3 ml INH RQ6 PRN PRN Reason: Shortness of Breath Alprazolam (Xanax) 0.25 mg PO Q8 PRN PRN Reason: Anxiety Stop: 07/05/18 16:44 Last Admin: 06/30/18 23:10 Dose: 0.25 mg Atorvastatin Calcium (Lipitor) 80 mg PO HS [facility] Last Admin: 07/01/18 23:00 Dose: 80 mg Brimonidine Tartrate (Alphagan 0.2% Opht) 1 drop OU Q12 [facility] Last Admin: 07/02/18 08:37 Dose: 1 drop Clopidogrel Bisulfate (Plavix) 75 mg PO DAILY [facility] Last Admin: 07/02/18 08:39 Dose: 75 mg Dorzolamide HCl (Trusopt) 1 drop OU Q8 [facility] Last Admin: 07/02/18 18:07 Dose: 1 drop Doxepin HCl (Sinequan) 50 mg PO HS [facility] Last Admin: 07/01/18 21:20 Dose: 50 mg Famotidine (Pepcid) 40 mg PO DAILY [facility] Last Admin: 07/02/18 08:38 Dose: 40 mg Ceftriaxone Sodium 1 gm/ (Sodium Chloride) 100 mls @ 100 mls/hr IVPB DAILY [facility]; Protocol Last Admin: 07/02/18 08:40 Dose: 100 mls/hr Azithromycin 500 mg/ Sodium (Chloride) 250 mls @ 250 mls/hr IVPB [facility]; Protocol Last Admin: 07/02/18 10:12 Dose: 250 mls/hr Lorazepam (Ativan) 0.5 mg PO Q12 PRN PRN Reason: Anxiety Last Admin: 07/01/18 14:36 Dose: 0.5 mg Losartan Potassium (Cozaar) 50 mg PO DAILY [facility] Last Admin: 07/02/18 08:38 Dose: 50 mg Metoprolol Succinate (Toprol Xl) 25 mg PO DAILY [facility] Last Admin: 07/02/18 08:39 Dose: 25 mg Montelukast Sodium (Singulair) 10 mg PO HS [facility] Last Admin: 07/01/18 21:21 Dose: 10 mg Prednisone (Prednisone Tab) 20 mg PO DAILY [facility] Last Admin: 07/02/18 08:39 Dose: 20 mg Fluticasone/Salmeterol (Advair Diskus 250/50) 1 puff IH Q12 [facility] Last Admin: 07/02/18 08:37 Dose: 1 puff Timolol Maleate (Timoptic 0.5% Ophth Soln) 1 drop OU Q12 [facility] Last Admin: 07/02/18 08:39 Dose: 1 drop Venlafaxine HCl (Effexor Xr) 150 mg PO QPM [facility] Last Admin: 07/02/18 18:07 Dose: 150 mg - Labs Labs: 07/01/18 15:42 06/28/18 14:00 PT 14.3 Seconds (9.8-13.1) H 07/01/18 15:42 INR 1.3 07/01/18 15:42 APTT 27.9 Seconds (25.6-37.1) 07/01/18 15:42 - Constitutional Appears: Well, Non-toxic, No Acute Distress - Head Exam Head Exam: ATRAUMATIC, NORMOCEPHALIC - Eye Exam Eye Exam: EOMI, Normal appearance, PERRL - Respiratory Exam Respiratory Exam: Clear to Ausculation Bilateral, NORMAL BREATHING PATTERN - Cardiovascular Exam Cardiovascular Exam: REGULAR RHYTHM, RRR, +S1, +S2. absent: Murmur - GI/Abdominal Exam GI & Abdominal Exam: Soft. absent: Tenderness - Extremities Exam Extremities Exam: Normal Capillary Refill. absent: Pedal Edema; Some bruising appreciated on Lower extremity - Neurological Exam Neurological Exam: Alert, Awake - Psychiatric Exam Psychiatric exam: Normal Affect, Normal Mood - Skin Skin Exam: Dry, Intact, Normal Color, Warm Assessment and Plan (1) Chest pain Status: Acute (2) HTN (hypertension) Status: Acute (3) Hypercholesterolemia Status: Chronic - Assessment and Plan (Free Text) Assessment: C/w Lipitor, Palvix, Cozaar 50, Toprol XL 25, Upon review of NST; possible findings of small infero septal defect noted - HOWEVER, CAD cannot be fully included or excluded due to the presence of bowel loop attenuation. Will recommend to continue w/ medical management at this time. If CP recurs w hile patient is undergoing medical management, then can consider for cardiac catheterization. Patient has remained stable at this time; No further inpatient management from a cardiovascular perspective. Please reconsult as necessary.
--- NOTE | 2018-07-02 21:06 | CP.PCM.DIS ---
Provider - Provider Date of Admission: 06/30/18 08:50 Attending physician: Bobby Rodriguez MD Consults: 06/28/18 16:41 Cardiology Consult Routine Comment: Consulting Provider: Kurt Lopez Consulting Physician: Kurt Lopez Reason for Consult: chest pain 06/28/18 19:02 Psychiatry Consult Routine Comment: Consulting Provider: Justo Guzmán Consulting Physician: Justo Guzmán Reason for Consult: suicidal, has a plan 06/28/18 20:29 Pastoral Care Referral Routine Comment: Physician Instructions: Reason For Exam: patient wishes Time Spent in preparation of Discharge (in minutes): 35 Diagnosis - Discharge Diagnosis (1) Chest pain Status: Acute Priority: High (2) Angina pectoris Status: Suspected (3) HTN (hypertension) Status: Acute Priority: High (4) Asthma exacerbation Status: Resolved Priority: High (5) Hypercholesterolemia Status: Chronic Priority: Medium (6) Major depression Status: Acute Hospital Course - Lab Results Lab Results: Micro Results 06/28/18 08:10 Blood Blood Culture - Preliminary NO GROWTH AFTER 4 DAYS Most Recent Lab Values WBC 11.9 K/uL (4.8-10.8) H 07/01/18 15:42 RBC 4.39 Mil/uL (3.80-5.20) 07/01/18 15:42 Hgb 13.2 g/dL (12.0-16.0) 07/01/18 15:42 Hct 40.2 % (34.0-47.0) 07/01/18 15:42 MCV 91.7 fl (81.0-99.0) 07/01/18 15:42 MCH 30.1 pg (27.0-31.0) 07/01/18 15:42 MCHC 32.9 g/dL (33.0-37.0) L 07/01/18 15:42 RDW 14.6 % (11.5-14.5) H 07/01/18 15:42 Plt Count 443 K/uL (130-400) H D 07/01/18 15:42 MPV 7.5 fl (7.2-11.7) 06/28/18 14:00 Neut % (Auto) 61.1 % (50.0-75.0) 06/28/18 14:00 Lymph % (Auto) 29.2 % (20.0-40.0) 06/28/18 14:00 [place] % (Auto) 8.0 % (0.0-10.0) 06/28/18 14:00 Eos % (Auto) 0.8 % (0.0-4.0) 06/28/18 14:00 Baso % (Auto) 0.9 % (0.0-2.0) 06/28/18 14:00 Neut # (Auto) 8.2 K/uL (1.8-7.0) H 06/28/18 14:00 Lymph # (Auto) 3.9 K/uL (1.0-4.3) 06/28/18 14:00 [place] # (Auto) 1.1 K/uL (0.0-0.8) H 06/28/18 14:00 Eos # (Auto) 0.1 K/uL (0.0-0.7) 06/28/18 14:00 Baso # (Auto) 0.1 K/uL (0.0-0.2) 06/28/18 14:00 PT 14.3 Seconds (9.8-13.1) H 07/01/18 15:42 INR 1.3 07/01/18 15:42 APTT 27.9 Seconds (25.6-37.1) 07/01/18 15:42 pCO2 39 mm/Hg (35-45) 06/28/18 13:51 pO2 114 mm/Hg (80-100) H 06/28/18 13:51 HCO3 28.4 mmol/L (21-28) H 06/28/18 13:51 ABG pH 7.47 (7.35-7.45) H 06/28/18 13:51 ABG Total CO2 29.6 mmol/L (22-28) H 06/28/18 13:51 ABG O2 Saturation 100.0 % (95-98) H 06/28/18 13:51 ABG O2 Content 18.8 ML/dL (15-23) 06/28/18 13:51 ABG Base Excess 4.5 mmol/L (-2.0-3.0) H 06/28/18 13:51 ABG Hemoglobin 13.7 g/dL (11.7-17.4) 06/28/18 13:51 ABG Carboxyhemoglobin 1.7 % (0.5-1.5) H 06/28/18 13:51 POC ABG HHb (Measured) 0.0 % (0.0-5.0) 06/28/18 13:51 ABG Methemoglobin 1.3 % (0.0-3.0) 06/28/18 13:51 ABG O2 Capacity 18.8 mL/dL (16-24) 06/28/18 13:51 [place] Test Yes 06/28/18 13:51 VBG pH 7.39 (7.32-7.43) 06/28/18 08:00 VBG pCO2 56 mmHg (40-60) 06/28/18 08:00 VBG HCO3 28.5 mmol/L 06/28/18 08:00 VBG Total CO2 35.6 mmol/L (22-28) H 06/28/18 08:00 VBG O2 Sat (Calc) 24.8 % (40-65) L 06/28/18 08:00 VBG Base Excess 7.1 mmol/L (0.0-2.0) H 06/28/18 08:00 VBG Potassium 4.8 mmol/L (3.6-5.2) 06/28/18 08:00 A-a O2 Difference 58.0 mm/Hg 06/28/18 13:51 Hgb O2 Saturation 97.0 % (95.0-98.0) 06/28/18 13:51 Sodium 137.0 mmol/L (132-148) 06/28/18 08:00 Chloride 101.0 mmol/L (98-107) 06/28/18 08:00 Glucose 110 mg/dL (65-105) H 06/28/18 08:00 Lactate 1.1 mmol/L (0.7-2.1) 06/28/18 08:00 FiO2 31.0 % 06/28/18 13:51 Blood Gas Comments 3l,/m nc,rr 06/28/18 13:51 Crit Value Read Back N 06/28/18 13:51 Sodium 140 mmol/l (132-148) 06/28/18 14:00 Potassium 4.5 MMOL/L (3.6-5.0) 06/28/18 14:00 Chloride 98 mmol/L (98-107) 06/28/18 14:00 Carbon Dioxide 30 mmol/L (22-30) 06/28/18 14:00 Anion Gap 17 (10-20) 06/28/18 14:00 BUN 21 mg/dl (7-17) H 06/28/18 14:00 Creatinine 0.8 mg/dl (0.7-1.2) 06/28/18 14:00 Est GFR ( Amer) > 60 06/28/18 14:00 Est GFR (Non-Af Amer) > 60 06/28/18 14:00 POC Glucose (mg/dL) 101 mg/dL (65-110) 07/01/18 10:58 Random Glucose 151 mg/dL (65-105) H 06/28/18 14:00 Calcium 9.4 mg/dL (8.4-10.2) 06/28/18 14:00 Phosphorus 4.0 mg/dl (2.5-4.5) 06/28/18 14:00 Magnesium 2.4 MG/DL (1.6-2.3) H 06/28/18 14:00 Total Bilirubin 0.4 mg/dl (0.2-1.3) 06/28/18 14:00 AST 25 U/L (14-36) 06/28/18 14:00 ALT 40 U/L (9-52) 06/28/18 14:00 Alkaline Phosphatase 105 U/L (38-126) 06/28/18 14:00 Troponin I < 0.0120 ng/mL (0.00-0.120) 06/28/18 20:34 Total Protein 7.6 G/DL (6.3-8.2) 06/28/18 14:00 Albumin 4.1 g/dL (3.5-5.0) 06/28/18 14:00 Globulin 3.4 gm/dL (2.2-3.9) 06/28/18 14:00 Albumin/Globulin Ratio 1.2 (1.0-2.1) 06/28/18 14:00 Venous Blood Potassium 4.8 mmol/L (3.6-5.2) 06/28/18 08:00 Influenza Typ A,B (EIA) Negative for flu a/b (NEGATIVE) 06/28/18 08:10 - Date & Time of H&P Date of H&P: 06/28/18 Time of H&P: 13:00 Discharge Exam - Head Exam Head Exam: NORMAL INSPECTION - Eye Exam Eye Exam: PERRL - ENT Exam ENT Exam: Normal Exam - Neck Exam Neck exam: Normal Inspection - Respiratory Exam Respiratory Exam: NORMAL BREATHING PATTERN - Cardiovascular Exam Cardiovascular Exam: REGULAR RHYTHM - GI/Abdominal Exam GI & Abdominal Exam: Normal Bowel Sounds, Soft - Extremities Exam Extremities exam: normal inspection - Back Exam Back exam: NORMAL INSPECTION - Neurological Exam Neurological exam: Alert, Oriented x3 Additional comments: Follows commands, no focal motor sensory deficit. - Psychiatric Exam Psychiatric exam: Anxious, Depressed - Skin Skin Exam: Warm Discharge Plan - Discharge Medications Prescriptions: Atorvastatin [Lipitor] 80 mg PO HS #30 tab - Follow Up Plan Condition: FAIR Disposition: HOME/ ROUTINE Patient education suggested?: Yes Instructions: High Blood Pressure (DC), Chest Pain (DC), Suicide Prevention for Geriatrics (DC), Hypertension (DC), Hypertension (GEN) Additional Instructions: please follow up with primary doctor in 1 week Referrals: Bobby Rodriguez MD [Staff Provider] -
--- NOTE | 2018-07-05 10:38 | CARD ---
APPROVED REPORT Date of service: 06/29/2018 Protocol: LEXISCAN Test Type: Stress Nuclear Medications: Tylenol 325mg, Albuterol 3mg, Xanax 0.25mg, Norvac 5mg, Lipitor 80mg, Nitro Sll, Losartan 50mg, Metoprolol 50mg, Prednisone 20mg, Timolol Medical History: Hypertension, Asthma, Angina, Hypercholesterolemia, Arthritis, Appendectomy, Back Pain, Axniety, Gastroesophagel Reflux, Target HR: 142 bpm Resting ECG: normal Resting Heart Rate: 79 bpm Resting Blood Pressure: 148/86mmHg submaximum (85%): 121 bpm TEST SUMMARY PREINJECTPRE-[id number]. [id number]. INJECTIONNUC [id number]. [id number]. PROCEDURE Pharmacologic stress testing was performed using 0.4mg per 5ml of regadenoson given intravenously over 7-10 seconds. POST EXERCISE Reason for Termination: Fatigue Target HR: No Max HR: 79 bpm 75% of Maximum Predicted HR: 142 bpm Exercise duration: 00:22 min:sec, 0 Stage Exercise capacity: 1.0METs Max Blood Pressure: 154/90mmHg Blood Pressure response to exercise: resting hypertension - exaggerated response Heart Rate response to exercise: appropriate Chest Pain: No, none Angina index: 0 Arrhythmia: No, none ST Change: No, none Deviation: 0 mm Clinical Indications Under Appropriate Use Criteria Patient was scheduled for nuclear stress test due to history of hypertension, hyperlipidemia and chest pressrue Stress EKG Interpretation No major st or t waves changes noticed. RESTING ECG Rhythm: Sinus Conduction: Normal Arrhythmias: None Repolarization: Normal STRESS ECG Rhythm: Sinus Conduction: Normal Arrhythmias: None Repolarization: Normal ST-Segment changes: none EXAM: Myocardial Perfusion REST/STRESS Image QualityGood Imaging Protocol The imaging protocol used to acquire images was Rest Tc-99m/stress Tc-99m 1 day Rest Spect myocardial perfusion imaging was performed in supine position 60 minutes following the injection of 10 mCi of Tc-99 Myoview. Time of rest injection: 7:44 Time of rest imagin:42 At peak stress, the patient was injected intravenously with 30mCi of Tc-99 tetrofosmin after an infusion time of minutes and seconds. Time of stress injection: 10:20 Gated Stress Spect was performed 140 minutes after intravenous Tc-99 Myoview injection. The images were gated to evaluate regional wall motion and calculate ventricular ejection fraction. NUCLEAR IMAGE INTERPRETATION Study quality was excellent. Left Ventricular size was Normal at Rest and Stress. Lung uptake was Normal. Left Ventricular ejection fraction is 75%. LV Perfusion Normal LV Perfusion 1 The rest and stress images show normal perfusion. Wall Motion Normal CONCLUSION 1. Normal nuclear stress test Recommendation Medical therapy
== END 2018-07-02 20:00 | disposition home or self-care (01) | DRG 313 ==
LOC: H.ER 07:15 → H.ERHOLD 09:44 → H.TEL 12:39 → OBSVTOIN 06-30 08:50 → H.TEL 07-01 09:50
PROVIDERS: ADMIT Internal Medicine Pulmonary Disease; ATTEND Internal Medicine Pulmonary Disease
DX: R07.9 Chest pain, unspecified (principal); J45.901 Unspecified asthma with (acute) exacerbation; F33.9 Major depressive disorder, recurrent, unspecified; R45.851 Suicidal ideations; J44.0 Chronic obstructive pulmonary disease with (acute) lower respiratory infection; I20.9 Angina pectoris, unspecified; F41.0 Panic disorder [episodic paroxysmal anxiety]; E78.00 Pure hypercholesterolemia, unspecified; E78.5 Hyperlipidemia, unspecified; F17.200 Nicotine dependence, unspecified, uncomplicated; I10 Essential (primary) hypertension; K21.9 Gastro-esophageal reflux disease without esophagitis; Z87.01 Personal history of pneumonia (recurrent); Z90.49 Acquired absence of other specified parts of digestive tract; K59.00 Constipation, unspecified; M19.90 Unspecified osteoarthritis, unspecified site; Z79.899 Other long term (current) drug therapy; M54.9 Dorsalgia, unspecified; R06.01 Orthopnea